=== PATIENT | male | born 1930 | race Caucasian/White ===

== ENCOUNTER 2017-08-21 00:21 | Inpatient (IN) | payer MEDICARE, MEDICAID ==
[~2017-08-21] VITALS: Ht 188 cm; Wt 97.0 kg
[2017-08-21] VITALS (7 sets, daily range): BP systolic 115–147; BP diastolic 61–71; PULSE 72–85; RESP 17–22; TEMP 98.6–98.8; O2SAT 95–98
[~2017-08-21 00:21] MED LIST: ASPI81 PO; CLON1 PO; DOXA1TAB3 PO; ENAL20TA81 PO; GLYB1TAB50 PO; LEVO75TA42 PO; LORT5TAB PO; METF850T PO; METO25 PO; NIAC500 PO; SIMV20 PO; TAB-TAB PO
--- NOTE | 2017-08-21 00:43 | PD ---
HPI Chief Complaint: MCDOWELL ACT Time Seen by Provider: 00:28 Travel History International Travel<30 days: No Contact w/Intl Traveler<30days: No Traveled to known affect area: No History of Present Illness HPI CLINICAL PSYCHOLOGIST INITIATED MCDOWELL ACT AT [facility] AND SENT TO [facility] FOR EVALUATION. PATIENT APPPARENTLY WAS ATTEMPTING TO CUT HIS WRISTS WITH DULL OBJECTS....PATIENT HIMSELF HAS NO COMPLAINT AND STATES THAT HE IS HERE BECAUSE HE SAID "HE WANTED TO BECAUSE HE DOESN'T SEE A LIGHT AT THE END OF THE TUNNEL" PATIENT HAS NO ACTUAL PLAN IN PLACE. 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 Repeat every 5 minutes for a total of 3 DOSES or call 911 if NO relief. Milk of Magnesia Liq (Magnesium Hydroxide) 400 Mg/5 Ml Susp 30 Ml PO DAILY PRN Baclofen 10 Mg Tab 5 Mg PO Q8HR Tylenol (Acetaminophen) 325 Mg Tab 650 Mg PO Q4H PRN Magnesium Oxide 400 Mg Tab 400 Mg PO TID Hydrocodone-Acetaminophen 7.5 Mg-325 Mg Tab 1 Tab PO Q12HR PRN Xarelto (Rivaroxaban) 15 Mg Tab 15 Mg PO HS Tamsulosin (Tamsulosin HCl) 0.4 Mg Cap 0.4 Mg HS Januvia (Sitagliptin Phosphate) 100 Mg Tab 100 Mg PO DAILY Probiotic (Saccharomyces Boulardii) 250 Mg Cap 250 Mg PO BID One Daily-Minerals (Multiple Vitamins W/ Minerals) 1 Tab 1 Tab PO DAILY Metoprolol Tartrate 25 Mg Tab 25 Mg PO DAILY Allergy Relief (Loratadine) 10 Mg Tab 10 Mg PO DAILY Glipizide 5 Mg Tab 5 Mg PO DAILY Take 30 minutes before a meal Folic Acid 0.4 Mg Tab 1 Mg PO DAILY Celexa (Citalopram Hydrobromide) 10 Mg Tab 20 Mg PO DAILY Atorvastatin (Atorvastatin Calcium) 10 Mg Tab 10 Mg PO HS Abilify (Aripiprazole) 2 Mg Tab 2 Mg PO DAILY Review of Systems Psychiatric: Positive: Suicidal Ideations Physical Exam Narrative GENERAL: SKIN: Warm and dry. HEAD: Atraumatic. Normocephalic. EYES: Pupils equal and round. No scleral icterus. No injection or drainage. ENT: No nasal bleeding or discharge. Mucous membranes pink and moist. NECK: Trachea midline. No JVD. CARDIOVASCULAR: Regular rate and rhythm. RESPIRATORY: No accessory muscle use. Clear to auscultation. Breath sounds equal bilaterally. GASTROINTESTINAL: Abdomen soft, non-tender, nondistended. MUSCULOSKELETAL: Extremities without clubbing, cyanosis, or edema. No obvious deformities. NEUROLOGICAL: Awake and alert. Motor grossly within normal limits.Normal speech. PSYCHIATRIC: DEPRESSED mood and SAD affect; insight and judgment normal. Data Data Last Documented VS Orders Orders Complete Blood Count With Diff (08/21/17 00:28) Comprehensive Metabolic Panel (08/21/17 00:28) Thyroid Stimulating Hormone (08/21/17:28) Urinalysis - C+S If Indicated (08/21/17:28) Electrocardiogram (08/21/17 00:28) Oximetry (08/21/17 00:28) Ecg Monitoring (08/21/17:28) Psych Screen (08/21/17:28) Drug Screen, Random Urine (08/21/17:28) Alcohol (Ethanol) (08/21/17:28) Salicylates (Aspirin) (08/21/17 00:28) Tylenol (Acetaminophen) (08/21/17 00:28) Ct Brain W/O Iv Contrast(Rout) (08/21/17 00:43) Chest, Single Ap (08/21/17 00:44) Diet Heart Healthy (08/21/17 Breakfast) Urine Culture (08/21/17 07:30) Admit Order (Ed Use Only) (08/21/17 15:58) Labs Laboratory Tests Test 08/21/17 00:45 08/21/17 07:30 White Blood Count 9.4 TH/MM3 Red Blood Count 3.92 MIL/MM3 Hemoglobin 10.0 GM/DL Hematocrit 30.4 % Mean Corpuscular Volume 77.5 FL Mean Corpuscular Hemoglobin 25.4 PG Mean Corpuscular Hemoglobin Concent 32.8 % Red Cell Distribution Width 16.3 % Platelet Count 296 TH/MM3 Mean Platelet Volume 7.3 FL Neutrophils (%) (Auto) 68.2 % Lymphocytes (%) (Auto) 19.9 % Monocytes (%) (Auto) 6.6 % Eosinophils (%) (Auto) 4.7 % Basophils (%) (Auto) 0.6 % Neutrophils # (Auto) 6.4 TH/MM3 Lymphocytes # (Auto) 1.9 TH/MM3 Monocytes # (Auto) 0.6 TH/MM3 Eosinophils # (Auto) 0.4 TH/MM3 Basophils # (Auto) 0.1 TH/MM3 CBC Comment DIFF FINAL Differential Comment Blood Urea Nitrogen 27 MG/DL Creatinine 1.74 MG/DL Random Glucose 233 MG/DL Total Protein 6.4 GM/DL Albumin 1.9 GM/DL Calcium Level 7.9 MG/DL Alkaline Phosphatase 88 U/L Aspartate Amino Transf (AST/SGOT) 15 U/L Alanine Aminotransferase (ALT/SGPT) 18 U/L Total Bilirubin 0.2 MG/DL Sodium Level 139 MEQ/L Potassium Level 4.4 MEQ/L Chloride Level 106 MEQ/L Carbon Dioxide Level 25.1 MEQ/L Anion Gap 8 MEQ/L Estimat Glomerular Filtration Rate 37 ML/MIN Thyroid Stimulating Hormone 3rd Gen 8.210 uIU/ML Salicylates Level LESS THAN 1.7 MG/DL Acetaminophen Level LESS THAN 2.0 MCG/ML Ethyl Alcohol Level LESS THAN 3 MG/DL Urine Color YELLOW Urine Turbidity CLEAR Urine pH 5.0 Urine Specific [place] 1.019 Urine Protein NEG mg/dL Urine Glucose (UA) NEG mg/dL Urine Ketones NEG mg/dL Urine Occult Blood MOD Urine Nitrite NEG Urine Bilirubin NEG Urine Urobilinogen LESS THAN 2.0 MG/DL Urine Leukocyte Esterase MOD Urine RBC 65 /hpf Urine WBC 23 /hpf Urine Squamous Epithelial Cells <1 /hpf Urine Bacteria OCC /hpf Microscopic Urinalysis Comment CULTURE INDICATED Urine Opiates Screen POS Urine Barbiturates Screen NEG Urine Amphetamines Screen NEG Urine Benzodiazepines Screen NEG Urine Cocaine Screen NEG Urine Cannabinoids Screen NEG MDM Medical Decision Making Medical Screen Exam Complete: Yes Emergency Medical Condition: Yes Medical Record Reviewed: Yes Interpretation(s) NSR, 72 BPM, RBBB, PVC'S NO STEMI PATTERN Differential Diagnosis PNA V ICH V STEMI V INTOXICATION V PSYCH ILLNESS Narrative Course prerenal azotemia, mild anemia hb 10, tsh c/w hypothyroid and ua c/w uti...although medically cleared, all the previous mentioned medical diagnosis may be affecting the patient's "depression" Diagnosis Primary Impression: MEDICAL CLEARANCE Scripts Sertraline (Zoloft) 50 Mg Tab 75 MG PO DAILY for health, #45 TAB 0 Refills Prov: Bob Shay MD 08/26/17 Levothyroxine (Synthroid) 112 Mcg Tab 112 MCG PO DAILY@0600 for health, #30 TAB 0 Refills Prov: Bob Shay MD 08/26/17 Ferrous Sulfate (Ferosul) 325 Mg (65 Mg Iron) Tablet 325 MG PO DAILY for health, #30 TAB 0 Refills Prov: Bob Shay MD 08/26/17 Amlodipine (Norvasc) 5 Mg Tab 2.5 MG PO DAILY for health, #30 TAB 0 Refills Prov: Bob Shay MD 08/26/17 Andrew Chow MD Aug 21, 2017 00:43
[2017-08-21 00:52] LABS: AUTOMATED NEUTROPHIL # 6.4 TH/MM3 (1.8-7.7); BASOPHIL # 0.1 TH/MM3 (0-0.2); BASOPHIL % 0.6 % (0.0-2.0); EOSINOPHIL # 0.4 TH/MM3 (0-0.4); EOSINOPHIL % 4.7 % (0.0-4.0); HEMATOCRIT 30.4 % (39.0-51.0); LYMPH % 19.9 % (9.0-44.0); LYMPHOCYTE # 1.9 TH/MM3 (1.0-4.8); MEAN CELL VOLUME 77.5 FL (80.0-100.0); MEAN CORPUSCULAR HEMOGLOBIN 25.4 PG (27.0-34.0); MEAN CORPUSCULAR HGB CONC 32.8 % (32.0-36.0); MEAN PLATELET VOLUME 7.3 FL (7.0-11.0); MONO % 6.6 % (0.0-8.0); MONOCYTE # 0.6 TH/MM3 (0-0.9); NEUT % 68.2 % (16.0-70.0); PLATELET COUNT 296 TH/MM3 (150-450); RED BLOOD COUNT 3.92 MIL/MM3 (4.50-5.90); RED CELL DISTRIBUTION WIDTH 16.3 % (11.6-17.2); WHITE BLOOD COUNT 9.4 TH/MM3 (4.0-11.0)
--- NOTE | 2017-08-21 01:21 | RADRPT ---
EXAM DATE/TIME: 08/21/2017 00:47 [facility] COMPARISON: CHEST SINGLE AP, March 09, 2010, 4:17. INDICATIONS : History of COPD. MEDICAL HISTORY : Hypertension. Diabetes mellitus type II. Chronic obstructive pulmonary diseas e. Arthritis. Hypercholesterolemia. Melanoma. SURGICAL HISTORY : CABG. Cholecystectomy. Hip. Bilateral knee. ENCOUNTER: Initial ACUITY: 1 day PAIN SCORE: 0/10 LOCATION: Bilateral chest FINDINGS: A single view of the chest demonstrates the lungs to be symmetrically aerated without evidence of mas s or effusion. There is chronic scarring at the left lung base with no new confluent infiltrates or e ffusions. The patient is status post median sternotomy. The cardiomediastinal contours are unremarka ble. Osseous structures are intact. CONCLUSION: Stable appearance with chronic scarring at the left lung base. Jessee Alberts MD on August 21, 2017 at 1:18 Board Certified Radiologist. This report was verified electronically.
[2017-08-21 01:23] LABS: ALBUMIN 1.9 GM/DL (3.4-5.0); ALT (GPT) 18 U/L (12-78); AST (GOT) 15 U/L (15-37); BICARBONATE 25.1 MEQ/L (21.0-32.0); BLOOD UREA NITROGEN 27 MG/DL (7-18); CALCIUM 7.9 MG/DL (8.5-10.1); CHLORIDE 106 MEQ/L (98-107); CREATININE 1.74 MG/DL (0.60-1.30); GLOMERULAR FILTRATION RATE 37 ML/MIN (>89); GLUCOSE,RANDOM 233 MG/DL (74-106); SODIUM (NA) 139 MEQ/L (136-145)
[2017-08-21 01:33] LABS: ACETAMINOPHEN LESS THAN 2.0 MCG/ML (10.0-30.0); ALKALINE PHOSPHATASE 88 U/L (45-117); TOTAL BILIRUBIN ADULT 0.2 MG/DL (0.2-1.0); TOTAL PROTEIN 6.4 GM/DL (6.4-8.2)
--- NOTE | 2017-08-21 01:38 | RADRPT ---
EXAM DATE/TIME: 08/21/2017 01:21 [facility] COMPARISON: No previous studies available for comparison. INDICATIONS : Altered mental status. RADIATION DOSE: 41.30 CTDIvol (mGy) MEDICAL HISTORY : Non-responsive. SURGICAL HISTORY : Non-responsive. ENCOUNTER: Initial ACUITY: 1 day PAIN SCALE: Non-responsive LOCATION: cranial TECHNIQUE: Multiple contiguous axial images were obtained of the head. Using automated exposure control and adj ustment of the mA and/or kV according to patient size, radiation dose was kept as low as reasonably a chievable to obtain optimal diagnostic quality images. DICOM format image data is available electro nically for review and comparison. FINDINGS: CEREBRUM: There is diffuse moderate atrophic change with sulcal and ventricular prominence. No evidence of midl ine shift, hemorrhage or acute infarction. There is a low density region along the medial left tempor al lobe best seen on image #9 which measures up to approximately 2.3 x 1.3 cm in diameter. No extra-a xial fluid collections are seen. POSTERIOR FOSSA: The brainstem is intact. There is a small low-attenuation region in the left cerebellar hemisphere c onsistent with an area of remote infarction. The 4th ventricle is midline. The cerebellopontine angl e is unremarkable. EXTRACRANIAL: The visualized portion of the orbits is intact. SKULL: The calvaria is intact. No evidence of skull fracture. CONCLUSION: 1. Low attenuation region along the medial left temporal lobe which may represent a small arachnoid c yst or area of encephalomalacia. 2. Diffuse moderate atrophic change with sulcal and ventricular prominence. 3. 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 Jessee Alberts MD on August 21, 2017 at 1:33 Board Certified Radiologist. This report was verified electronically.
[2017-08-21 08:16] LABS: BACTERIA, URINE OCC /hpf; BILIRUBIN, URINE NEG (NEG); BLOOD, URINE MOD (NEG); GLUCOSE,URINE NEG (NEG); KETONE, URINE NEG (NEG); NITRITE,URINE NEG (NEG); SQUAMOUS EPITHELIAL CELL URINE <1 /hpf (0-5); URINE COLOR YELLOW (YELLW/STRAW); URINE LEUKOCYTE ESTERASE MOD (NEG)
[2017-08-21] MEDS ORDERED: ONDA8TAB7 PO (14:38)
[2017-08-21] MEDS ORDERED: TYLE325T PO (14:38)
[2017-08-21] MEDS ORDERED: METO25TA3 PO (14:38)
[2017-08-21] MEDS ORDERED: GLIP5TAB8 PO (14:38)
[2017-08-21] MEDS ORDERED: ATOR10TA15 PO (14:38)
[2017-08-21] MEDS ORDERED: CELE10TA PO (14:38)
[2017-08-21] MEDS ORDERED: BACL10TA PO (14:38)
[2017-08-21] MEDS ORDERED: MILKSUS PO (14:38)
[2017-08-21] MEDS ORDERED: ARIP2 PO (14:38)
[2017-08-21] MEDS ORDERED: NITR0.4S SL (14:38)
[2017-08-21] MEDS ORDERED: MIRA3350 PO (14:38)
[2017-08-21] MEDS ORDERED: LEVO100T5 PO (14:38)
[2017-08-21] MEDS ORDERED: TAMS0.4C4 (14:38)
[2017-08-21] MEDS ORDERED: XARE15TA PO (14:38)
[2017-08-21] MEDS ORDERED: FOLI400T PO (14:38)
[2017-08-21] MEDS ORDERED: HYDR-3580 PO (14:38)
[2017-08-21] MEDS ORDERED: OMEP40CA2 (14:38)
[2017-08-21] MEDS ORDERED: SACC1CAP3 PO (14:38)
[2017-08-21] MEDS ORDERED: SITA1TAB2 PO (14:38)
[2017-08-21] MEDS ORDERED: FLOR250C PO (14:38)
[2017-08-21] MEDS ORDERED: MAGN400T2 PO (14:38)
[2017-08-21] MEDS ORDERED: ONETAB22 PO (14:38)
[2017-08-21] MEDS ORDERED: LORA-650 PO (14:38)
[2017-08-21] MEDS ORDERED: CLON1 PO (14:38)
[2017-08-21] MEDS ORDERED: ACETAMINOPHEN 325 MG TAB PO PRN (16:00)
[2017-08-21] MEDS ORDERED: LORazepam 2 MG/ML VIAL IM PRN (16:00)
[2017-08-21] MEDS ORDERED: ALUMINUM/MAGNESIUM/SIMETH 30 ML CUP PO PRN (16:00)
[2017-08-21] MEDS ORDERED: LORazepam 0.5 MG TAB PO PRN (16:00)
[2017-08-21] MEDS ORDERED: SERTRALINE HCL 50 MG TAB PO ONE (16:30)
[2017-08-21] MEDS ORDERED: PILL SPLITTER OTHER PRN (16:30)
--- NOTE | 2017-08-21 16:33 | HHI.HP ---
Provisional Diagnosis Admission Date Aug 21, 2017 at 16:00 [place] I. Major depressive disorder, single episode, severe without psychotic features Certification of Person's Competence To Provide Express and Informed Consent I have personally examined Elia Mckeon , a person being served at [facility] on, Aug 21, 2017 16:19. Express and informed consent means consent voluntarily given in writing, by a competent person, after sufficient explanation and disclosure of the subject matter involved to enable the person to make a knowing and willful decision without any element of force, fraud, deceit, duress, or other form of constraint or coercion. This person is 18 years of age or older, is not now known to be incompetent to consent to treatment with a guardian advocate, and does not have a health care surrogate or proxy currently making medical treatment decisions. I have found this person to be one of the following: [] Competent to provide express and informed consent, as defined above, for voluntary admission to this facility and is competent to provide express and informed consent for treatment. He/she has the consistent capacity to make well reasoned, willful, and knowing decisions concerning his or her medical or mental health treatment. The person fully and consistently understands the purpose of the admission for examination/placement and is fully capable of personally exercising all rights assured under [place]xxx] Incompetent to provide express and informed consent to voluntary admission , and this is incompetent to provide express and informed consent to treatment. The person must be transferred to involuntary status and a petition for a guardian advocate filed with the Circuit Court. [] Refusing to provide express and informed consent to voluntary admission but is competent to provide express and informed consent for treatment. The person must be discharged or transferred to involuntary status. Form shall be completed within 24 hours of a person's arrival at the receiving facility and filed in the clinical record of each person: 1. Admitted on a voluntary basis 2. Permitted to provide express and informed consent to his/her own treatment 3. Allowed to transfer from involuntary to voluntary status 4. Prior to permitting a person to consent to his or her own treatment after having been previously found incompetent to consent to treatment. History of Present Illness Capacity: Has Capacity HPI Patient is an 87-year-old man , domiciled in a nursing facility with no formal past psychiatric history, no prior psychiatric admission , one previous suicide attempt years ago via overdose, no self interest behavior , with a past medical history significant for COPD, diabetes, BPH, nonambulatory , currently requiring total care, no substance use history, was brought in under Kruger act by clinical psychologist at the facility at the patient have attempted to cut wrists with L object and wanted to which patient was admitted to the inpatient psychiatry for further evaluation and management. As per the Kruger act patient was noted to have significant depressive symptoms with ongoing suicide ideation with clear intent as patient reported planning to kill himself by suffocation or slitting his wrists with dull objects. Patient was found lying hospital bed noted B, cooperative although noted to have some psychomotor retardation. Patient states that he did not want to live anymore for the past 2 years but has been worse recently after his told him that he cannot return home until he was able to return to his previous function which is likely unlikely due to his current physical state. Patient states that his recent stressors are that he is not able to be at home, cannot get at when he wants to and able to return to his previous function. Patient states that he has had thoughts of not wanting to be alive and recent thoughts of ways he would end his life such as drowning himself in a lewis. Patient states he has had one remote suicide attempt years ago via overdose. Patient this time reports decreased energy feeling depressed, helpless and hopeless but no changes sleep, appetite or concentration. Patient continues to have active suicidal ideations denies any perceptual disturbances or delusions at this time. Past psychiatric history: Patient denies although as per chart previous psychiatric diagnoses of depression, no previous psychiatric admissions, one previous suicide attempt years ago, no self interest behavior patient reports having been on medications for depression in the past but cannot recall at this time. Past medical history: COPD, diabetes, BPH Allergies: Ibuprofen Substance use history denies Social history: , domiciled nursing facility. Review of Systems Except as stated in HPI: all other systems reviewed are Neg Past Family Social History Coded Allergies: ibuprofen (Unverified Allergy, Severe, HX GASTRIC ULCERS, 01/13/17) Reported Medications Ondansetron (Ondansetron) 8 Mg Tab, 4 MG PO TID for Nausea/Vomiting, TAB 0 Refills 08/21/17 Nitroglycerin SL (Nitrostat SL) 0.4 Mg Subl, 0.4 MG SL DIRECTED Y for CHEST PAIN, #100 TAB.SL 0 Refills 1 tablet under the tongue as needed for chest pain. Repeat every 5 minutes for a total of 3 DOSES or call 911 if NO relief. 08/21/17 Polyethylene Glycol 3350 Powder (Miralax Powder) 17 Gm Powd, 17 GM PO DAILY for Constipation, #1 CAN 0 Refills Mix and dissolve one measuring cap-ful (17 grams) in water or juice. 08/21/17 Magnesium Hydroxide Liq (Milk of Magnesia Liq) 400 Mg/5 Ml Susp, 30 ML PO DAILY Y for INDIGESTION OR UPSET STOMACH, #1 BOTTLE 0 Refills 08/21/17 Baclofen (Baclofen) 10 Mg Tab, 5 MG PO Q8HR, TAB 0 Refills 08/21/17 Acetaminophen (Tylenol) 325 Mg Tab, 650 MG PO Q4H Y for pain-fever, TAB 0 Refills 08/21/17 Magnesium Oxide (Magnesium Oxide) 400 Mg Tab, 400 MG PO TID for Nutritional Supplement, TAB 0 Refills 08/21/17 Saccharomyces Boulardii (Florastor) 250 Mg Cap, 250 MG PO BID for Nutritional Supplement for 10 Days, #20 CAP 0 Refills 08/21/17 Hydrocodone-Acetaminophen (Hydrocodone-Acetaminophen) 7.5 Mg-325 Mg Tab, 1 TAB PO Q12HR Y for PAIN, TAB 0 Refills 08/21/17 Rivaroxaban (Xarelto) 15 Mg Tab, 15 MG PO HS for Blood Clot Prevention, TAB 0 Refills 08/21/17 Tamsulosin (Tamsulosin) 0.4 Mg Cap, 0.4 MG HS for Manage Prostate Problems, #30 CAP 0 Refills 08/21/17 Sitagliptin (Januvia) 100 Mg Tab, 100 MG PO DAILY for Blood Sugar Management, # 30 TAB 0 Refills 08/21/17 Saccharomyces Boulardii (Probiotic) 250 Mg Cap, 250 MG PO BID for Nutritional Supplement, CAP 0 Refills 08/21/17 Omeprazole (Omeprazole) 40 Mg Cap, 40 MG DAILY, #30 CAP 0 Refills 08/21/17 Multiple Vitamins W/ Minerals (One Daily-Minerals) 1 Tab, 1 TAB PO DAILY for Nutritional Supplement, #100 TAB 0 Refills 08/21/17 Metoprolol Tartrate (Metoprolol Tartrate) 25 Mg Tab, 25 MG PO DAILY, #30 TAB 0 Refills 08/21/17 Loratadine (Allergy Relief) 10 Mg Tab, 10 MG PO DAILY, TAB 08/21/17 Levothyroxine (Levothyroxine) 100 Mcg Tab, 100 MCG PO DAILY for Thyroid, #30 TAB 0 Refills 08/21/17 Clonazepam (Klonopin) 1 Mg Tab, 1 MG PO HS, #60 TAB 0 Refills 08/21/17 Glipizide (Glipizide) 5 Mg Tab, 5 MG PO DAILY for Blood Sugar Management, #30 TAB 0 Refills Take 30 minutes before a meal 08/21/17 Folic Acid (Folic Acid) 0.4 Mg Tab, 1 MG PO DAILY for Nutritional Supplement, TAB 0 Refills 08/21/17 Citalopram (Celexa) 10 Mg Tab, 20 MG PO DAILY for Control Depression, #30 TAB 0 Refills 08/21/17 Atorvastatin (Atorvastatin) 10 Mg Tab, 10 MG PO HS for Cholesterol Management, # 30 TAB 0 Refills 08/21/17 Aripiprazole (Abilify) 2 Mg Tab, 2 MG PO DAILY, #30 TAB 0 Refills 08/21/17 Current Medications Medications (Trade) Dose Ordered Sig/Maurilio Route Start Time Stop Time Status Last Admin (Ativan) 0.5 mg Q12H PRN PO 08/21/17 16:00 (Ativan Inj) 0.5 mg Q12H PRN IM 08/21/17 16:00 (Benadryl) 50 mg HS PRN PO 08/21/17 16:00 (Tylenol) 650 mg Q4H PRN PO 08/21/17 16:00 UNV (Milk Of Magnesia Liq) 30 ml DAILY PRN PO 08/21/17 16:00 UNV (Mag-Al Plus Susp Liq) 30 ml Q6H PRN PO 08/21/17 16:00 UNV (Habitrol 21 Mg Patch.24 Hr) 1 patch DAILY T-DERMAL 08/22/17 09:00 UNV Patient's Strengths (min. 2) Verbal and communicative Physical Exam We will defer to recent ED physical exam performed prior to transfer to inpatient unit not noted to be in acute distress during interview, no signs of tremor or EPS but was noted to have some psychomotor retardation. Vital Signs Vital Signs Date Time Temp Pulse Resp B/P (MAP) Pulse Ox O2 Delivery O2 Flow Rate FiO2 08/21/17 15:24 79 19 147/69 (95) 96 Room Air 08/21/17 07:30 98.6 Lab Results Labs reviewed Test 08/21/17 00:45 08/21/17 07:30 White Blood Count 9.4 TH/MM3 Red Blood Count 3.92 MIL/MM3 Hemoglobin 10.0 GM/DL Hematocrit 30.4 % Mean Corpuscular Volume 77.5 FL Mean Corpuscular Hemoglobin 25.4 PG Mean Corpuscular Hemoglobin Concent 32.8 % Red Cell Distribution Width 16.3 % Platelet Count 296 TH/MM3 Mean Platelet Volume 7.3 FL Neutrophils (%) (Auto) 68.2 % Lymphocytes (%) (Auto) 19.9 % Monocytes (%) (Auto) 6.6 % Eosinophils (%) (Auto) 4.7 % Basophils (%) (Auto) 0.6 % Neutrophils # (Auto) 6.4 TH/MM3 Lymphocytes # (Auto) 1.9 TH/MM3 Monocytes # (Auto) 0.6 TH/MM3 Eosinophils # (Auto) 0.4 TH/MM3 Basophils # (Auto) 0.1 TH/MM3 CBC Comment DIFF FINAL Differential Comment Blood Urea Nitrogen 27 MG/DL Creatinine 1.74 MG/DL Random Glucose 233 MG/DL Total Protein 6.4 GM/DL Albumin 1.9 GM/DL Calcium Level 7.9 MG/DL Alkaline Phosphatase 88 U/L Aspartate Amino Transf (AST/SGOT) 15 U/L Alanine Aminotransferase (ALT/SGPT) 18 U/L Total Bilirubin 0.2 MG/DL Sodium Level 139 MEQ/L Potassium Level 4.4 MEQ/L Chloride Level 106 MEQ/L Carbon Dioxide Level 25.1 MEQ/L Anion Gap 8 MEQ/L Estimat Glomerular Filtration Rate 37 ML/MIN Thyroid Stimulating Hormone 3rd Gen 8.210 uIU/ML Salicylates Level LESS THAN 1.7 MG/DL Acetaminophen Level LESS THAN 2.0 MCG/ML Ethyl Alcohol Level LESS THAN 3 MG/DL Urine Color YELLOW Urine Turbidity CLEAR Urine pH 5.0 Urine Specific [place] 1.019 Urine Protein NEG mg/dL Urine Glucose (UA) NEG mg/dL Urine Ketones NEG mg/dL Urine Occult Blood MOD Urine Nitrite NEG Urine Bilirubin NEG Urine Urobilinogen LESS THAN 2.0 MG/DL Urine Leukocyte Esterase MOD Urine RBC 65 /hpf Urine WBC 23 /hpf Urine Squamous Epithelial Cells <1 /hpf Urine Bacteria OCC /hpf Microscopic Urinalysis Comment CULTURE INDICATED Urine Opiates Screen POS Urine Barbiturates Screen NEG Urine Amphetamines Screen NEG Urine Benzodiazepines Screen NEG Urine Cocaine Screen NEG Urine Cannabinoids Screen NEG Date/Time Source Procedure Growth Status 08/21/17 07:30 Urine Random Urine Urine Culture Pending Received Mental Status Examination Appearance: Appropriate Consciousness: Alert Orientation: Person, Place Motor Activity: Other (Nonambulatory) Speech: Slow Language: Adequate Fund of Knowledge: Inadequate Attention and Concentration: Adequate Memory: Unremarkable Mood: Sad Affect: Sad Thought Process & Associations: Linear Thought Content: Preoccupations (Underlying) Hallucination Type: None Delusion Type: None Suicidal Ideation: Yes Suicidal Plan: Yes Suicidal Intention: Yes Homicidal Ideation: No Homicidal Plan: No Homicidal Intention: No Insight: Poor Judgment: Poor Assessment & Plan Problem List: (1) Major depressive disorder, single episode, severe without psychotic features ICD Codes: F32.2 - Major depressive disorder, single episode, severe without psychotic features Assessment & Plan Estimated LOS: 5-7 days. Patient at this time endorses significant depressive symptoms along with active suicide ideations with intent to . Patient will be admitted to the inpatient psychiatry unit under involuntary petition, second opinion requested. We will start patient on sertraline 25 mg 1 and 50 mg p.o. daily for depression, continue rest of medications for medical issues, we will consult hospitalist to assist in management of chronic medical issues. Collateral information pending from . Social work intervention for psychosocial assessment. Monitor mood and behavior. Patient will require full assist as this patient is total care. We will request wound consult as patient has decubitus ulcer. Discharge planning in progress. Discharge Planning Patient return back to nursing facility when psychiatrically stable. Mati Larios MD Aug 21, 2017 16:33
--- NOTE | 2017-08-21 19:51 | EKG ---
Date Performed: 08/21/2017 Time Performed: 00:44:18 PTAGE: 87 years EKG: Sinus rhythm WITH FREQUENT SUPRAVENTRICULAR PREMATURE COMPLEXES RIGHT BUNDLE BRANCH BLOCK PROLONGED CORRECTED QT INTERVAL ABNORMAL ECG PREVIOUS TRACING : 03/07/2010 07.41 DOCTOR: Wilson Jensen Interpretating Date/Time 08/21/2017 19:49:11
[2017-08-21] MEDS: MAGNESIUM HYDROXIDE SUSP 30 ML CUP PO PRN (21:39)
[2017-08-22] MEDS: diphenhydrAMINE HCL 50 MG CAP PO PRN ×2 (01:12→21:35)
[2017-08-22 05:41] VITALS: BP 143/72; PULSE 81; RESP 16; TEMP 98.4; O2SAT 100
[2017-08-22] MEDS ORDERED: DEXTROSE 50% IN WATER 50 ML VIAL(D50) IV PUSH PRN (08:30)
[2017-08-22] MEDS ORDERED: GLUCAGON 1 MG/ML VIAL OTHER PRN (08:30)
[2017-08-22] MEDS ORDERED: NON-FORMULARY DRUG (Saccharomyces Boulardii (Probiotic) 250 MG) PO SCH (09:00)
[2017-08-22] MEDS: NICOTINE 21 MG/24 HR PATCH T-DERMAL SCH (09:00)
[2017-08-22] MEDS: METOPROLOL TARTRATE 25 MG TAB PO SCH (09:00)
[2017-08-22] MEDS: glipiZIDE 5 MG TAB PO SCH (09:00)
[2017-08-22] MEDS: SERTRALINE HCL 50 MG TAB PO SCH (09:00)
[2017-08-22] MEDS: MULTIVITAMINS/MINERALS THERAPEUTIC TAB PO SCH (09:00)
[2017-08-22] MEDS: PANTOPRAZOLE SOD 40 MG DELAYED RELEASE TAB PO SCH (09:00)
[2017-08-22] MEDS ORDERED: RESP: ALBUTEROL 2.5 MG/IPRATROPIUM 0.5 MG NEB (PRN) NEB (09:00)
[2017-08-22] MEDS: FOLIC ACID 1 MG TAB PO SCH (09:00)
[2017-08-22] MEDS ORDERED: LEVOTHYROXINE SODIUM 100 MCG TAB PO SCH (09:00)
[2017-08-22] MEDS ORDERED: CEFUROXIME AXETIL 250 MG TAB PO ONE (10:00)
[2017-08-22] MEDS: INSULIN ASPART SUPPLEMENTAL SCALE SQ SCH ×3 (11:14→21:00)
--- NOTE | 2017-08-22 11:52 | HHI.PYPN ---
Subjective Remarks Pt seen and discussed with staff. Pt remains depressed. He has been cooperative with care and compliant with medications. No medication side effects.He was started on zoloft for depression and is tolerating it well. Mental Status Examination Appearance: Appropriate Consciousness: Alert Orientation: Person, Place Motor Activity: Other (Nonambulatory) Speech: Slow Language: Adequate Fund of Knowledge: Inadequate Attention and Concentration: Adequate Memory: Unremarkable Mood: Sad Affect: Sad, Flat Thought Process & Associations: Linear Thought Content: Preoccupations (Underlying) Hallucination Type: None Delusion Type: None Suicidal Ideation: Yes Suicidal Plan: No Suicidal Intention: No Homicidal Ideation: No Homicidal Plan: No Homicidal Intention: No Insight: Poor Judgment: Poor Results Labs Date/Time Source Procedure Growth Status 08/21/17 07:30 Urine Random Urine Urine Culture - Final 10-50,000 CFU/ML MIXED AZALIA... Complete Vitals/IOs Vital Signs Date Time Temp Pulse Resp B/P (MAP) Pulse Ox O2 Delivery O2 Flow Rate FiO2 08/22/17 05:41 98.4 81 16 143/72 (95) 100 08/21/17 15:24 Room Air Intake and Output 08/22/17 08/22/17 08/23/17 08:00 16:00 00:00 Intake Total 0 ml Balance 0 ml Assessment & Plan Problem List: (1) Major depressive disorder, single episode, severe without psychotic features ICD Codes: F32.2 - Major depressive disorder, single episode, severe without psychotic features Assessment & Plan Continue current tx plan. Estimated LOS: days Justification for Cont. Inpt. monitoring for safety Agnes Gil MD Aug 22, 2017 11:52
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
[2017-08-22 13:29] LABS: AUTOMATED NEUTROPHIL # 8.9 TH/MM3 (1.8-7.7); BASOPHIL # 0.1 TH/MM3 (0-0.2); EOSINOPHIL # 0.3 TH/MM3 (0-0.4); EOSINOPHIL % 2.3 % (0.0-4.0); HEMOGLOBIN 10.6 GM/DL (13.0-17.0); LYMPH % 14.5 % (9.0-44.0); LYMPHOCYTE # 1.7 TH/MM3 (1.0-4.8); MEAN CELL VOLUME 77.6 FL (80.0-100.0); MEAN CORPUSCULAR HEMOGLOBIN 25.6 PG (27.0-34.0); MEAN PLATELET VOLUME 7.6 FL (7.0-11.0); MONO % 6.1 % (0.0-8.0); MONOCYTE # 0.7 TH/MM3 (0-0.9); NEUT % 76.1 % (16.0-70.0); PLATELET COUNT 314 TH/MM3 (150-450); RED BLOOD COUNT 4.13 MIL/MM3 (4.50-5.90); WHITE BLOOD COUNT 11.8 TH/MM3 (4.0-11.0)
[2017-08-22 13:46] LABS: BICARBONATE 25.4 MEQ/L (21.0-32.0); BLOOD UREA NITROGEN 25 MG/DL (7-18); CALCIUM 8.3 MG/DL (8.5-10.1); CHLORIDE 105 MEQ/L (98-107); CREATININE 1.67 MG/DL (0.60-1.30); GLOMERULAR FILTRATION RATE 39 ML/MIN (>89); GLUCOSE,RANDOM 136 MG/DL (74-106); SODIUM (NA) 139 MEQ/L (136-145)
[2017-08-22 13:55] LABS: CHOLESTEROL 61 MG/DL (120-200); CHOLESTEROL/ HDL RATIO 2.21 RATIO; HDL CHOLESTEROL 27.5 MG/DL (40.0-60.0); LDL CHOLESTEROL 11 MG/DL (0-99); TRIGLYCERIDES 115 MG/DL (42-150)
[2017-08-22 14:03] LABS: % SATURATION IRON PROFILE 10.6 % (20-50); IRON (FE) 21 MCG/DL (65-175); TOTAL IRON BINDING CAPACITY 199 MCG/DL (250-450)
[2017-08-22 14:28] LABS: FERRITIN 330 NG/ML (26-388)
[2017-08-22 14:29] LABS: FOLATE GREATER THAN 20.0 NG/ML (3.1-17.5)
[2017-08-22 17:32] VITALS: BP 113/74; PULSE 83; RESP 16; TEMP 98.5; O2SAT 100
--- NOTE | 2017-08-22 19:58 | EKG ---
Date Performed: 08/22/2017 Time Performed: 11:22:48 PTAGE: 87 years EKG: Sinus rhythm WITH OCCASIONAL SUPRAVENTRICULAR PREMATURE COMPLEXES RIGHT BUNDLE BRANCH BLOCK INFERIOR MYOCARDIAL I NFARCTION , PROBABLY OLD ABNORMAL ECG Since the PREVIOUS TRACING , no significant change noted PREVIOUS TRACIN08/21/2017 00.44 DOCTOR: Jatin Gates Interpretating Date/Time 08/22/2017 19:56:39
[2017-08-22] MEDS: TAMSULOSIN HCL 0.4 MG CAP PO SCH (21:31)
[2017-08-22] MEDS: CEFUROXIME AXETIL 250 MG TAB PO SCH (21:32)
[2017-08-22] MEDS: ATORVASTATIN 10 MG TAB PO SCH (21:32)
[2017-08-22] MEDS: RIVAROXABAN 15 MG TAB PO SCH (21:32)
[2017-08-23 06:04] VITALS: BP 111/80; PULSE 81; RESP 17; TEMP 98.5; O2SAT 96
[2017-08-23] MEDS: INSULIN ASPART SUPPLEMENTAL SCALE SQ SCH ×4 (08:00→21:01)
[2017-08-23] MEDS: LEVOTHYROXINE SODIUM 112 MCG TAB PO SCH (08:14)
[2017-08-23] MEDS: CEFUROXIME AXETIL 250 MG TAB PO SCH ×2 (08:14→20:59)
[2017-08-23] MEDS: PANTOPRAZOLE SOD 40 MG DELAYED RELEASE TAB PO SCH (08:14)
[2017-08-23] MEDS: SERTRALINE HCL 50 MG TAB PO SCH (08:14)
[2017-08-23] MEDS: glipiZIDE 5 MG TAB PO SCH (08:14)
[2017-08-23] MEDS: FOLIC ACID 1 MG TAB PO SCH (08:14)
[2017-08-23] MEDS: MULTIVITAMINS/MINERALS THERAPEUTIC TAB PO SCH (08:14)
[2017-08-23] MEDS: METOPROLOL TARTRATE 25 MG TAB PO SCH (08:14)
[2017-08-23] MEDS: NICOTINE 21 MG/24 HR PATCH T-DERMAL SCH (08:15)
[2017-08-23 11:45] LABS: HEMOGLOBIN A1C 6.8 % (4.3-6.0)
--- NOTE | 2017-08-23 12:17 | HHI.PR ---
Subjective Remarks Patient seen and examined this morning. Afebrile vital signs stable. He is eating lunch. Reports that he is overall doing well. Does report some mild nausea. Also is reporting some constipation though he has had some improvement in his bowel movements. Denies any chest pain or shortness of breath. Patient was discussed with the nurse. Objective Vitals Vital Signs Date Time Temp Pulse Resp B/P (MAP) Pulse Ox O2 Delivery O2 Flow Rate FiO2 08/23/17 06:04 98.5 81 17 111/80 (90) 96 08/22/17 17:32 98.5 83 16 113/74 (87) 100 I/O 08/22/17 08/22/17 08/22/17 08/23/17 08/23/17 08/23/17 07:00 15:00 23:00 07:00 15:00 23:00 Intake Total 0 ml 120 ml 120 ml 360 ml Balance 0 ml 120 ml 120 ml 360 ml Intake Oral 0 ml 120 ml 120 ml 360 ml # Voids 2 1 3 # Bowel Movements 1 2 Result Diagram: 08/22/17 1220 08/22/17 1220 Imaging Last Impressions Chest X-Ray 08/21/1743 Signed Impressions: Service Date/Time: Monday, August 21, 2017 00:47 - CONCLUSION: Stable appearance with chronic scarring at the left lung base. Jessee Alberts MD Head CT 08/21/17 0043 Signed Impressions: Service Date/Time: Monday, August 21, 2017 01:21 - CONCLUSION: 1. Low attenuation region along the medial left temporal lobe which may represent a small arachnoid cyst or area of encephalomalacia. 2. Diffuse moderate atrophic change with sulcal and ventricular prominence. 3. 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 Jessee Alberts MD Objective Remarks GENERAL: This is a well-nourished, well-developed elderly male patient , in no apparent distress. Awake and alert. Sitting in a chair at the lunch table. Hard of hearing SKIN: No rashes, ecchymoses or lesions. Cool and dry. HEAD: Atraumatic. Normocephalic. No temporal or scalp tenderness. EYES: Extraocular motions intact. No scleral icterus. No injection or drainage. ENT: Nose without bleeding or purulent drainage. Throat without erythema, tonsillar hypertrophy or exudate. Uvula midline. Airway patent. NECK: Trachea midline. No lymphadenopathy. Supple, nontender, no meningeal signs. CARDIOVASCULAR: Regular rate and rhythm with extra beats without murmurs, gallops, or rubs. RESPIRATORY: Fair air entry. Clear to auscultation. Breath sounds equal bilaterally. No wheezes, rales, or rhonchi. GASTROINTESTINAL: Abdomen soft, non-tender, nondistended. No hepato-splenomegaly , or palpable masses. No guarding. MUSCULOSKELETAL: Extremities without clubbing, cyanosis, or edema. No joint tenderness, effusion, or edema noted. No calf tenderness. NEUROLOGICAL: Awake and alert. Cranial nerves II through XII grossly intact. Sensory grossly within normal limits. Diminished motor function RLE, unable to lift up off of bed. Good cellulose insulation helper strength bilaterally. Normal speech. Medications and IVs Current Medications Medications (Trade) Dose Ordered Sig/Maurilio Route Start Time Stop Time Status Last Admin (Ativan) 0.5 mg Q12H PRN PO 08/21/17 16:00 08/22/17 01:12 (Ativan Inj) 0.5 mg Q12H PRN IM 08/21/17 16:00 (Benadryl) 50 mg HS PRN PO 08/21/17 16:00 08/22/17 21:35 (Tylenol) 650 mg Q4H PRN PO 08/21/17 16:00 08/22/17 21:36 (Milk Of Magnesia Liq) 30 ml DAILY PRN PO 08/21/17 16:00 08/21/17 21:39 (Mag-Al Plus Susp Liq) 30 ml Q6H PRN PO 08/21/17 16:00 (Habitrol 21 Mg Patch.24 Hr) 1 patch DAILY T-DERMAL 08/22/17 09:00 (Zoloft) 50 mg DAILY PO 08/22/17 09:00 08/23/17 08:14 (Pill Splitter) 1 ea UNSCH PRN OTHER 08/21/17 16:30 (Lipitor) 10 mg HS PO 08/22/17 21:00 08/22/17 21:32 (Folate) 1 mg DAILY PO 08/22/17 09:00 08/23/17 08:14 (Glucotrol) 5 mg DAILY PO 08/22/17 09:00 08/23/17 08:14 (Lopressor) 25 mg DAILY PO 08/22/17 09:00 08/23/17 08:14 (Theragran M Tab) 1 tab DAILY PO 08/22/17 09:00 08/23/17 08:14 (Xarelto) 15 mg HS PO 08/22/17 21:00 08/22/17 21:32 (Flomax) 0.4 mg HS PO 08/22/17 21:00 08/22/17 21:31 (Protonix) 40 mg DAILY PO 08/22/17 09:00 08/23/17 08:14 (D50w (Vial) Inj) 50 ml UNSCH PRN IV PUSH 08/22/17 08:30 (Glucagon Inj) 1 mg UNSCH PRN OTHER 08/22/17 08:30 (NovoLOG SUPPLEMENTAL SCALE) 1 ACHS SLIDING SCALE SQ 08/22/17 12:00 08/23/17 11:04 (Duoneb Neb) 1 ampule Q4HR NEB PRN NEB 08/22/17 09:00 (Ceftin) 250 mg Q12HR PO 08/22/17 21:00 08/23/17 08:14 (Januvia) 50 mg DAILY PO 08/23/17 09:00 08/23/17 08:14 (Synthroid) 112 mcg DAILY@0600 PO 08/23/17 06:00 08/23/17 08:14 A/P Problem List: (1) Major depressive disorder, single episode, severe without psychotic features ICD Code: F32.2 - Major depressive disorder, single episode, severe without psychotic features (2) Hypertension ICD Code: I10 - Essential (primary) hypertension (3) UTI (urinary tract infection) ICD Code: N39.0 - Urinary tract infection, site not specified (4) Diabetes mellitus ICD Code: E11.9 - Type 2 diabetes mellitus without complications (5) CKD (chronic kidney disease) ICD Code: N18.9 - Chronic kidney disease, unspecified Assessment and Plan 87-year-old male with a past medical history significant for major depressive disorder, hypertension, diabetes, hypothyroidism, coronary artery disease status post CABG, history of PE and DVT, COPD, anemia, GERD and BPH who presented to [facility] ED as a Kruger act initiated by clinical psychologist at [facility] due to patient tending to cut his wrist with dull objects. Patient has since been admitted to the inpatient psychiatric unit and hospitalist services of been consulted for medical management. Major depressive disorder -Management per psychiatric team Advanced age Physical deconditioning -PT eval/treat Hypertension, controlled -Continue on Lopressor 25 mg daily -Continue to monitor BP and adjust treatment accordingly CAD s/p CABG Hx of PE/DVT -Patient has no cardiac complaints at this time -resume on Xarelto -monitor UTI -Symptomatic -UA with moderate leukocytes, 65 red blood cells, 23 white blood cells, occasional bacteria, culture indicated -Likely contaminant per culture however will complete 3 days of IV antibiotics, due to complaints of symptomatic -Continue Ceftin 250 mg twice a day -Follow up on final urine culture results DM -obtain HgbA1c: Results pending -Continue home dose of glipizide 5 mg daily, continue Januvia but at decreased dose of 50 mg daily secondary to kidney dysfunction -Accu-Chek and insulin sliding scale -Continue to monitor blood sugars Chronic kidney disease, stage 3 -creatinine 1.67 -Avoid nephrotoxic agents -Renally dose medications -Continue to monitor renal indices as indicated Anemia, microcytic, hypochromic -Obtain iron studies, B12, folate and stool Hemoccult -Hemoglobin appears stable -Continue to monitor COPD, not in acute exacerbation -CXR shows stable appearance, chronic scarring left lung base -DuoNeb's as needed -Continue to monitor respiratory status Hypothyroidism -TSH 8.210 -Increase home dose of levothyroxine to 112 g daily -patient will need to have TSH level redrawn as outpatient in 6-8 weeks GERD -Resume on PPI BPH -Resume home dose of Flomax Diarrhea Hx of constipation -Patient reporting normal bowel movements though still feeling mildly constipated, currently no worsening signs of possible C. difficile -Discussed with nursing staff, if diarrhea recurs will test for C. difficile DVT prophylaxis -patient is on Xarelto Discharge Planning Pending psychiatric workup Jayjay Iglesias MD, R3 Aug 23, 2017 12:17
--- NOTE | 2017-08-23 13:37 | HHI.PYPN ---
Subjective Remarks Pt seen and discussed with staff. He is having a better day and mood is less dysphoric though he is still tearful at times. He has been out of bed more today and interacted with staff and peers. No medications side effects. He denies SI/HI Mental Status Examination Appearance: Appropriate Consciousness: Alert Orientation: Person, Place Motor Activity: Other (Nonambulatory) Speech: Slow Language: Adequate Fund of Knowledge: Inadequate Attention and Concentration: Adequate Memory: Unremarkable Mood: Sad Affect: Sad, Other (tearful) Thought Process & Associations: Linear Thought Content: Preoccupations (Underlying) Hallucination Type: None Delusion Type: None Suicidal Ideation: No Suicidal Plan: No Suicidal Intention: No Homicidal Ideation: No Homicidal Plan: No Homicidal Intention: No Insight: Poor Judgment: Poor Results Labs Date/Time Source Procedure Growth Status 08/21/17 07:30 Urine Random Urine Urine Culture - Final 10-50,000 CFU/ML MIXED AZALIA... Complete Vitals/IOs Vital Signs Date Time Temp Pulse Resp B/P (MAP) Pulse Ox O2 Delivery O2 Flow Rate FiO2 08/23/17 06:04 98.5 81 17 111/80 (90) 96 08/21/17 15:24 Room Air Intake and Output 08/23/17 08/23/17 08/24/17 08:00 16:00 00:00 Intake Total 120 ml 360 ml Balance 120 ml 360 ml Assessment & Plan Problem List: (1) Major depressive disorder, single episode, severe without psychotic features ICD Codes: F32.2 - Major depressive disorder, single episode, severe without psychotic features Assessment & Plan Continue current tx plan. Estimated LOS: days Justification for Cont. Inpt. risk of decompensation Agnes Gil MD Aug 23, 2017 13:37
[2017-08-23 17:38] VITALS: BP 113/66; PULSE 84; RESP 18; TEMP 98.4; O2SAT 94
[2017-08-23] MEDS: MAGNESIUM HYDROXIDE SUSP 30 ML CUP PO PRN (18:37)
[2017-08-23] MEDS: ATORVASTATIN 10 MG TAB PO SCH (20:59)
[2017-08-23] MEDS: TAMSULOSIN HCL 0.4 MG CAP PO SCH (20:59)
[2017-08-23] MEDS: RIVAROXABAN 15 MG TAB PO SCH (20:59)
[2017-08-24] MEDS ORDERED: TRIMETHOBENZAMIDE INJ 200 MG/2 ML VIAL IM PRN (03:45)
--- NOTE | 2017-08-24 04:33 | RADRPT ---
EXAM DATE/TIME: 08/24/2017 04:00 [place] COMPARISON: No previous studies available for comparison. INDICATIONS : Vomiting. MEDICAL HISTORY : None. SURGICAL HISTORY : Bilateral hip arthroplasty. ENCOUNTER: Subsequent ACUITY: 3 days PAIN SCORE: Non-responsive. LOCATION: Bilateral Abdomen FINDINGS: Supine view of the abdomen was performed. Multiple dilated bowel loops including small bowel loops an d large bowel loops. No abnormal masses, calcifications, or organomegaly is seen. The osseous struc tures are unremarkable. Bilateral hip prostheses. CONCLUSION: Multiple dilated small and large bowel loops. Distal obstruction should be excluded. Mati Jeronimo MD on August 24, 2017 at 4:29 Board Certified Radiologist. This report was verified electronically.
[2017-08-24 04:56] VITALS: BP 95/55; PULSE 85; RESP 16; TEMP 98.2
--- NOTE | 2017-08-24 06:03 | RADRPT ---
EXAM DATE/TIME: 08/24/2017 05:41 [place] COMPARISON: No previous studies available for comparison. INDICATIONS : Abdomen pain with vomiting. ORAL CONTRAST: No oral contrast ingested. RADIATION DOSE: 14.23 CTDIvol (mGy) MEDICAL HISTORY : Cardiovascular disease. Hypertension. Diabetes mellitus type 2.Melanoma SURGICAL HISTORY : CABG Cholecystectomy.Bilateral hips ENCOUNTER: Initial ACUITY: 1 day PAIN SCALE: 7/10 LOCATION: abdomen TECHNIQUE: Volumetric scanning of the abdomen and pelvis was performed. Using automated exposure control and ad justment of the mA and/or kV according to patient size, radiation dose was kept as low as reasonably achievable to obtain optimal diagnostic quality images. DICOM format image data is available electro nically for review and comparison. FINDINGS: LOWER LUNGS: Left basilar consolidation. LIVER: Homogeneous density without lesion. There is no dilation of the biliary tree. Cholecystectomy. SPLEEN: Normal size without lesion. PANCREAS: Within normal limits. KIDNEYS: Normal in size and shape. There is no mass or hydronephrosis. 8-9 mm calcification in the right monica l pelvis. A few other punctate nonobstructing calculi in the right kidney. Several left-sided renal c alculi the largest measuring 8 mm in the upper pole ADRENAL GLANDS: Within normal limits. VASCULAR: There is no aortic aneurysm. BOWEL/MESENTERY: There are some mildly prominent small bowel loops without definite obstruction. Diverticulosis of the colon. There is no free intraperitoneal air or fluid. Small hiatal hernia. ABDOMINAL WALL: Within normal limits. RETROPERITONEUM: There is no lymphadenopathy. BLADDER: No wall thickening or mass. REPRODUCTIVE: Within normal limits. INGUINAL: There is no lymphadenopathy or hernia. MUSCULOSKELETAL: Within normal limits for patient age. CONCLUSION: 1. Left basilar consolidation. 2. Mildly prominent small bowel loops without definite obstruction. 3. Diverticulosis without diverticulitis. 4. Nonobstructing bilateral renal calculi. 5. Status post cholecystectomy. 6. Small hiatal hernia. Mati Jeronimo MD on August 24, 2017 at 5:56 Board Certified Radiologist. This report was verified electronically.
[2017-08-24] MEDS: LEVOTHYROXINE SODIUM 112 MCG TAB PO SCH (06:44)
[2017-08-24 06:50] VITALS: BP 131/63; PULSE 81; RESP 17; TEMP 98.3; O2SAT 95
[2017-08-24] MEDS: INSULIN ASPART SUPPLEMENTAL SCALE SQ SCH ×4 (08:00→21:53)
[2017-08-24] MEDS: NICOTINE 21 MG/24 HR PATCH T-DERMAL SCH (09:00)
[2017-08-24] MEDS: SERTRALINE HCL 50 MG TAB PO SCH (09:01)
[2017-08-24] MEDS: FOLIC ACID 1 MG TAB PO SCH (09:01)
[2017-08-24] MEDS: METOPROLOL TARTRATE 25 MG TAB PO SCH (09:01)
[2017-08-24] MEDS: PANTOPRAZOLE SOD 40 MG DELAYED RELEASE TAB PO SCH (09:01)
[2017-08-24] MEDS: MULTIVITAMINS/MINERALS THERAPEUTIC TAB PO SCH (09:01)
[2017-08-24] MEDS: CEFUROXIME AXETIL 250 MG TAB PO SCH (09:01)
[2017-08-24] MEDS: glipiZIDE 5 MG TAB PO SCH (09:01)
--- NOTE | 2017-08-24 09:12 | PD.TTN ---
Patient Problems 1. Discharge planning 2. Medication compliance 3. Knowledge deficit 4. Lack of coping skills Progress Toward Goals Provider Present: Dr. Alexander Shay Provider Input: Meeting with staff to go over pt treatment. Pt is new Psychiatric Counselors Present: Jeanette Acosta LCSW Psych Therapist Input: Will meet with new pt and begin treatment planningg Group Spec/RT/OT/WHITE Present: CHRISTOPHER Patrick, Michael Saldaña, GEE Group Spec/RT/OT/WHITE Input: New pt. Will encourage group attendance Mary Walton/Riccardo Aug 24, 2017 09:12
--- NOTE | 2017-08-24 09:18 | PD.TTN ---
Patient Problems 1. Discharge planning 2. Medication compliance 3. Knowledge deficit 4. Lack of coping skills Progress Toward Goals Provider Present: Dr. Alexander Shay Provider Input: 08/24/17 Meeting with staff to go over pt treatment. Pt is new Psychiatric Counselors Present: Jeanette Acosta LCSW Psych Therapist Input: 08/24/17 Will meet with new pt and begin treatment planningg Group Spec/RT/OT/WHITE Present: CHRISTOPHER Patrick Andrew Harrison, OT Group Spec/RT/OT/WHITE Input: 08/24/17 New pt. Will encourage group attendance Mary Walton/Riccardo Aug 24, 2017 09:18
[2017-08-24 10:57] LABS: AUTOMATED NEUTROPHIL # 12.9 TH/MM3 (1.8-7.7); BASOPHIL # 0.1 TH/MM3 (0-0.2); BASOPHIL % 0.3 % (0.0-2.0); EOSINOPHIL # 0.1 TH/MM3 (0-0.4); EOSINOPHIL % 0.8 % (0.0-4.0); HEMATOCRIT 34.5 % (39.0-51.0); HEMOGLOBIN 11.1 GM/DL (13.0-17.0); LYMPH % 10.2 % (9.0-44.0); LYMPHOCYTE # 1.6 TH/MM3 (1.0-4.8); MEAN CELL VOLUME 78.2 FL (80.0-100.0); MEAN CORPUSCULAR HEMOGLOBIN 25.1 PG (27.0-34.0); MEAN CORPUSCULAR HGB CONC 32.1 % (32.0-36.0); MEAN PLATELET VOLUME 8.1 FL (7.0-11.0); MONO % 4.3 % (0.0-8.0); MONOCYTE # 0.7 TH/MM3 (0-0.9); NEUT % 84.4 % (16.0-70.0); PLATELET COUNT 351 TH/MM3 (150-450); RED BLOOD COUNT 4.42 MIL/MM3 (4.50-5.90); RED CELL DISTRIBUTION WIDTH 16.3 % (11.6-17.2); WHITE BLOOD COUNT 15.3 TH/MM3 (4.0-11.0)
[2017-08-24 11:20] LABS: ALBUMIN 2.4 GM/DL (3.4-5.0); ALT (GPT) 15 U/L (12-78); AST (GOT) 21 U/L (15-37); BICARBONATE 25.3 MEQ/L (21.0-32.0); BLOOD UREA NITROGEN 36 MG/DL (7-18); CALCIUM 8.3 MG/DL (8.5-10.1); CHLORIDE 102 MEQ/L (98-107); GLOMERULAR FILTRATION RATE 29 ML/MIN (>89); GLUCOSE,RANDOM 236 MG/DL (74-106); SODIUM (NA) 138 MEQ/L (136-145)
[2017-08-24 11:21] LABS: ALKALINE PHOSPHATASE 79 U/L (45-117); TOTAL BILIRUBIN ADULT 0.4 MG/DL (0.2-1.0); TOTAL PROTEIN 7.3 GM/DL (6.4-8.2)
--- NOTE | 2017-08-24 11:35 | HHI.PYPN ---
Subjective Remarks Patient initially admitted by Dr. Mati Larios, his documentation and subsequent progress notes reviewed. I have finished the psychiatric inpatient admission template orders. And also review the med reconciliation. Patient seen by me today is alert fairly well oriented white male appears his stated age sitting calmly in Ek[place]ina chair he is cooperative with me states he feels somewhat better today and not so much at the end of the line. He is somewhat vague about what led to him going to the [facility]. Was given us permission speak with his . He is compliant medications. The first and second opinion petition for involuntary placement have been finished for now will continue patient's hospitalization monitoring him the need to arrange a meeting with patient's to discuss further treatment medications and placement Review of Systems Except as stated in HPI: all other systems reviewed are Neg Mental Status Examination Appearance: Appropriate Consciousness: Alert Orientation: Person, Place Motor Activity: Other (Nonambulatory) Speech: Slow Language: Adequate Fund of Knowledge: Inadequate Attention and Concentration: Adequate Memory: Unremarkable Mood: Sad Affect: Sad, Other (tearful) Thought Process & Associations: Linear Thought Content: Preoccupations (Underlying) Hallucination Type: None Delusion Type: None Suicidal Ideation: No Suicidal Plan: No Suicidal Intention: No Homicidal Ideation: No Homicidal Plan: No Homicidal Intention: No Insight: Poor Judgment: Poor Results Labs Test 08/24/17 08:55 White Blood Count 15.3 TH/MM3 Red Blood Count 4.42 MIL/MM3 Hemoglobin 11.1 GM/DL Hematocrit 34.5 % Mean Corpuscular Volume 78.2 FL Mean Corpuscular Hemoglobin 25.1 PG Mean Corpuscular Hemoglobin Concent 32.1 % Red Cell Distribution Width 16.3 % Platelet Count 351 TH/MM3 Mean Platelet Volume 8.1 FL Neutrophils (%) (Auto) 84.4 % Lymphocytes (%) (Auto) 10.2 % Monocytes (%) (Auto) 4.3 % Eosinophils (%) (Auto) 0.8 % Basophils (%) (Auto) 0.3 % Neutrophils # (Auto) 12.9 TH/MM3 Lymphocytes # (Auto) 1.6 TH/MM3 Monocytes # (Auto) 0.7 TH/MM3 Eosinophils # (Auto) 0.1 TH/MM3 Basophils # (Auto) 0.1 TH/MM3 CBC Comment DIFF FINAL Differential Comment Blood Urea Nitrogen 36 MG/DL Creatinine 2.20 MG/DL Random Glucose 236 MG/DL Total Protein 7.3 GM/DL Albumin 2.4 GM/DL Calcium Level 8.3 MG/DL Alkaline Phosphatase 79 U/L Aspartate Amino Transf (AST/SGOT) 21 U/L Alanine Aminotransferase (ALT/SGPT) 15 U/L Total Bilirubin 0.4 MG/DL Sodium Level 138 MEQ/L Potassium Level 4.0 MEQ/L Chloride Level 102 MEQ/L Carbon Dioxide Level 25.3 MEQ/L Anion Gap 11 MEQ/L Estimat Glomerular Filtration Rate 29 ML/MIN Date/Time Source Procedure Growth Status 08/21/17 07:30 Urine Random Urine Urine Culture - Final 10-50,000 CFU/ML MIXED AZALIA... Complete Vitals/IOs Vital Signs Date Time Temp Pulse Resp B/P (MAP) Pulse Ox O2 Delivery O2 Flow Rate FiO2 08/24/17 06:50 98.3 81 17 131/63 (85) 95 08/21/17 15:24 Room Air Assessment & Plan Problem List: (1) Major depressive disorder, single episode, severe without psychotic features ICD Codes: F32.2 - Major depressive disorder, single episode, severe without psychotic features Assessment & Plan Estimated LOS: days patient continues somewhat depressed though appears to have a decrease in his suicidality from admission. This compliant with medications. For now continue treatment Justification for Cont. Inpt. At this time patient decompensate placed in the lower level of care Discharge Planning Needs to be reviewed with patient's and family Bob Shay MD Aug 24, 2017 11:35
--- NOTE | 2017-08-24 12:57 | PD.TTN ---
Patient Problems 1. Discharge planning 2. Medication compliance 3. Knowledge deficit 4. Lack of coping skills Progress Toward Goals Provider Present: Dr. Alexander Shay Provider Input: Meeting with staff to go over pt treatment. Pt is new Psychiatric Counselors Present: Jeanette Acosta LCSW, Gabriela Gr, [facility] Psych Therapist Input: Will meet with new pt and begin treatment planningg Group Spec/RT/OT/WHITE Present: CHRISTOPHER Patrick, Michael Saldaña, OT Group Spec/RT/OT/WHITE Input: New pt. Will encourage group attendance Michael Saldaña OTR Aug 24, 2017 12:57
--- NOTE | 2017-08-24 14:50 | HHI.PR ---
Subjective Remarks Follow-up visit HTN, DM, hypothyroidism, CAD status post CABG in the past, history of PE and DVT. Patient seen and examined today sitting in the chair. Reports he is doing well. Denies pain and discomfort. Denies SOB/ dyspnea. Denies chest pain, palpitations, headaches, dizziness. Denies fevers, chills, n/ v/d. Objective Vitals Vital Signs Date Time Temp Pulse Resp B/P (MAP) Pulse Ox O2 Delivery O2 Flow Rate FiO2 08/24/17 06:50 98.3 81 17 131/63 (85) 95 08/24/17 04:56 98.2 85 16 95/55 (68) 08/23/17 17:38 98.4 84 18 113/66 (82) 94 I/O 08/23/17 08/23/17 08/23/17 08/24/17 08/24/17 08/24/17 07:00 15:00 23:00 07:00 15:00 23:00 Intake Total 120 ml 460 ml 660 ml 600 ml Balance 120 ml 460 ml 660 ml 600 ml Intake Oral 120 ml 460 ml 660 ml 600 ml # Voids 3 3 4 5 # Bowel Movements 2 2 5 Result Diagram: 08/24/17 0855 08/24/17 0855 Imaging Last Impressions Chest X-Ray 08/21/1743 Signed Impressions: Service Date/Time: Monday, August 21, 2017 00:47 - CONCLUSION: Stable appearance with chronic scarring at the left lung base. Jessee Alberts MD Head CT 08/21/17 0043 Signed Impressions: Service Date/Time: Monday, August 21, 2017 01:21 - CONCLUSION: 1. Low attenuation region along the medial left temporal lobe which may represent a small arachnoid cyst or area of encephalomalacia. 2. Diffuse moderate atrophic change with sulcal and ventricular prominence. 3. 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 Jessee Alberts MD Objective Remarks GENERAL: This is a well-nourished, well-developed patient, in no apparent distress. SKIN: Warm and dry HEENT: Normocephalic. Pupils equal round and reactive. Nose without bleeding. Airway patent. NECK: Trachea midline. CARDIOVASCULAR: Regular rate and rhythm without murmurs, gallops, or rubs. RESPIRATORY: Clear to auscultation. Breath sounds equal bilaterally. No wheezes , rales, or rhonchi. GASTROINTESTINAL: Abdomen soft, non-tender, protuberant. Bowel Sounds hypoactive. MUSCULOSKELETAL: Extremities without clubbing, cyanosis. Bilateral lower extremity trace edema. NEUROLOGICAL: Awake and alert. Oriented to place, person. Moves all extremities. Normal speech. A/P Problem List: (1) Major depressive disorder, single episode, severe without psychotic features ICD Code: F32.2 - Major depressive disorder, single episode, severe without psychotic features (2) Hypertension ICD Code: I10 - Essential (primary) hypertension (3) UTI (urinary tract infection) ICD Code: N39.0 - Urinary tract infection, site not specified (4) Diabetes mellitus ICD Code: E11.9 - Type 2 diabetes mellitus without complications (5) CKD (chronic kidney disease) ICD Code: N18.9 - Chronic kidney disease, unspecified Assessment and Plan 87-year-old male with a past medical history significant for major depressive disorder, hypertension, diabetes, hypothyroidism, coronary artery disease status post CABG, history of PE and DVT, COPD, anemia, GERD and BPH who presented to [facility] ED as a Kruger act initiated by clinical psychologist at [facility] due to patient tending to cut his wrist with dull objects. Patient has since been admitted to the inpatient psychiatric unit and hospitalist services of been consulted for medical management. Major depressive disorder -Management per psychiatric team Advanced age Physical deconditioning -PT eval/treat Hypertension, controlled -Continue on Lopressor 25 mg daily. Start low-dose Norvasc -Continue to monitor BP and adjust treatment accordingly CAD s/p CABG Hx of PE/DVT -Patient has no cardiac complaints at this time -resume on Xarelto -monitor UTI -Symptomatic -UA with moderate leukocytes, 65 red blood cells, 23 white blood cells, occasional bacteria, culture indicated -on Ceftin 250 mg twice a day -Urine culture 10-50,000 mixed gene. DC Ceftin DM 2, moderately controlled -HgbA1c 6.8 -Resume patient on home dose of glipizide 5 mg daily, resume Januvia but at decreased dose of 50 mg daily secondary to kidney dysfunction -Accu-Chek and insulin sliding scale -Continue to monitor blood sugars Chronic kidney disease, stage 3 -Baseline 1.6-1.7 -creatinine 1.74 --> 1.74 --> 2.20 -Avoid nephrotoxic agents -Renally dose medications -P.o. fluid hydration, start IV fluids if inadequate p.o. intake. -Consult nephrology if continues to decline Anemia, microcytic, hypochromic -Low iron, will start iron supplements -Hemoglobin appears stable -Continue to monitor intermittently. This could also be from kidney injury COPD, not in acute exacerbation -CXR shows stable appearance, chronic scarring left lung base, images reviewed by me [place] as needed -Continue to monitor respiratory status Hypothyroidism -TSH 8.210 -Increase home dose of levothyroxine to 112 g daily -patient will need to have TSH level redrawn as outpatient in 6-8 weeks GERD -Resume on PPI BPH -Resume home dose of Flomax DVT prophylaxis -patient is on Cesar Mcgrath Aug 24, 2017 14:50
[2017-08-24 18:00] VITALS: BP 111/63; PULSE 78; RESP 16; TEMP 98; O2SAT 96
[2017-08-24] MEDS: RIVAROXABAN 15 MG TAB PO SCH (21:52)
[2017-08-24] MEDS: ATORVASTATIN 10 MG TAB PO SCH (21:52)
[2017-08-24] MEDS: TAMSULOSIN HCL 0.4 MG CAP PO SCH (21:52)
[2017-08-25 05:54] VITALS: BP 127/72; PULSE 77; RESP 18; TEMP 97.4; O2SAT 96
[2017-08-25] MEDS: LEVOTHYROXINE SODIUM 112 MCG TAB PO SCH (06:23)
[2017-08-25] MEDS: INSULIN ASPART SUPPLEMENTAL SCALE SQ SCH ×4 (08:00→20:46)
[2017-08-25] MEDS: PANTOPRAZOLE SOD 40 MG DELAYED RELEASE TAB PO SCH (08:35)
[2017-08-25] MEDS: glipiZIDE 5 MG TAB PO SCH (08:35)
[2017-08-25] MEDS: MULTIVITAMINS/MINERALS THERAPEUTIC TAB PO SCH (08:35)
[2017-08-25] MEDS: FOLIC ACID 1 MG TAB PO SCH (08:35)
[2017-08-25] MEDS: METOPROLOL TARTRATE 25 MG TAB PO SCH (08:36)
[2017-08-25] MEDS: amLODIPine BESYLATE 5 MG TAB PO SCH (08:36)
[2017-08-25] MEDS: NICOTINE 21 MG/24 HR PATCH T-DERMAL SCH (09:00)
[2017-08-25] MEDS: CITALOPRAM HYDROBROMIDE 20 MG TAB PO SCH (09:00)
[2017-08-25] MEDS: ARIPiprazole 2 MG TAB PO SCH (09:00)
[2017-08-25 09:17] LABS: BICARBONATE 24.6 MEQ/L (21.0-32.0); CALCIUM 8.3 MG/DL (8.5-10.1); CREATININE 1.94 MG/DL (0.60-1.30)
--- NOTE | 2017-08-25 09:48 | HHI.PYPN ---
Subjective Remarks Patient seen in his room with nurse Miguel A and counselor Jeanette, chart reviewed, patient compliant medications, patient discussed with nurse. Patient somewhat upset and irritable. Somewhat related to his need for total care. At this time I feel patient needs a better be met by transfer to [facility]. There continues to ideation though he denies any specific suicidality. Review of Systems Except as stated in HPI: all other systems reviewed are Neg Mental Status Examination Appearance: Appropriate Consciousness: Alert Orientation: Person, Place Motor Activity: Other (Nonambulatory) Speech: Slow Language: Adequate Fund of Knowledge: Inadequate Attention and Concentration: Adequate Memory: Unremarkable Mood: Sad Affect: Sad, Other (tearful) Thought Process & Associations: Linear Thought Content: Preoccupations (Underlying) Hallucination Type: None Delusion Type: None Suicidal Ideation: No Suicidal Plan: No Suicidal Intention: No Homicidal Ideation: No Homicidal Plan: No Homicidal Intention: No Insight: Poor Judgment: Poor Results Labs Test 08/25/17 07:55 Blood Urea Nitrogen 32 MG/DL Creatinine 1.94 MG/DL Random Glucose 131 MG/DL Calcium Level 8.3 MG/DL Sodium Level 139 MEQ/L Potassium Level 4.2 MEQ/L Chloride Level 105 MEQ/L Carbon Dioxide Level 24.6 MEQ/L Anion Gap 9 MEQ/L Estimat Glomerular Filtration Rate 33 ML/MIN Date/Time Source Procedure Growth Status 08/21/17 07:30 Urine Random Urine Urine Culture - Final 10-50,000 CFU/ML MIXED AZALIA... Complete Vitals/IOs Vital Signs Date Time Temp Pulse Resp B/P (MAP) Pulse Ox O2 Delivery O2 Flow Rate FiO2 08/25/17 05:54 97.4 77 18 127/72 (90) 96 08/21/17 15:24 Room Air Assessment & Plan Problem List: (1) Major depressive disorder, single episode, severe without psychotic features ICD Codes: F32.2 - Major depressive disorder, single episode, severe without psychotic features Assessment & Plan Estimated LOS: days patient continues depressed somewhat irritable with ideation, compliant medications. Will transfer patient to [facility]. to help with his daily needs. He does day total care Justification for Cont. Inpt. At this time patient would decompensated place to the lower level of care Discharge Planning Need to verify that patient can return to his [facility] Bob Shay MD Aug 25, 2017 09:48
--- NOTE | 2017-08-25 14:58 | HHI.PR ---
Subjective Remarks Follow-up visit HTN, DM, hypothyroidism, CAD status post CABG in the past, history of PE and DVT. Patient seen and examined today laying in bed. Reports he is doing okay. Denies pain and discomfort. Denies SOB/ dyspnea. Denies chest pain, palpitations, headaches, dizziness. Denies fevers, chills, n/v/d. Objective Vitals Vital Signs Date Time Temp Pulse Resp B/P (MAP) Pulse Ox O2 Delivery O2 Flow Rate FiO2 08/25/17 05:54 97.4 77 18 127/72 (90) 96 08/24/17 18:00 98.0 78 16 111/63 (79) 96 I/O 08/24/17 08/24/17 08/24/17 08/25/17 08/25/17 08/25/17 07:00 15:00 23:00 07:00 15:00 23:00 Intake Total 600 ml 960 ml Balance 600 ml 960 ml Intake Oral 600 ml 960 ml # Voids 4 5 2 4 # Bowel Movements 5 1 Result Diagram: 08/24/17 0855 08/25/17 0755 Imaging Last Impressions Abdomen X-Ray 08/24/17 0335 Signed Impressions: Service Date/Time: Thursday, August 24, 2017 04:00 - CONCLUSION: Multiple dilated small and large bowel loops. Distal obstruction should be excluded. Mati Jeronimo MD Abdomen/Pelvis CT 08/24/17 0000 Signed Impressions: Service Date/Time: Thursday, August 24, 2017 05:41 - CONCLUSION: 1. Left basilar consolidation. 2. Mildly prominent small bowel loops without definite obstruction. 3. Diverticulosis without diverticulitis. 4. Nonobstructing bilateral renal calculi. 5. Status post cholecystectomy. 6. Small hiatal hernia. Mati Jeronimo MD Chest X-Ray 08/21/17 0044 Signed Impressions: Service Date/Time: Monday, August 21, 2017 00:47 - CONCLUSION: Stable appearance with chronic scarring at the left lung base. Jessee Alberts MD Head CT 08/21/17 0043 Signed Impressions: Service Date/Time: Monday, August 21, 2017 01:21 - CONCLUSION: 1. Low attenuation region along the medial left temporal lobe which may represent a small arachnoid cyst or area of encephalomalacia. 2. Diffuse moderate atrophic change with sulcal and ventricular prominence. 3. 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 Jessee Alberts MD Objective Remarks GENERAL: This is a well-nourished, well-developed patient, in no apparent distress. SKIN: Warm and dry HEENT: Normocephalic. Pupils equal round and reactive. Nose without bleeding. Airway patent. NECK: Trachea midline. CARDIOVASCULAR: Regular rate and rhythm without murmurs, gallops, or rubs. RESPIRATORY: Clear to auscultation. Breath sounds equal bilaterally. No wheezes , rales, or rhonchi. GASTROINTESTINAL: Abdomen soft, non-tender, protuberant. Bowel Sounds hypoactive. MUSCULOSKELETAL: Extremities without clubbing, cyanosis. Bilateral lower extremity trace edema. NEUROLOGICAL: Awake and alert. Oriented to place, person. Moves all extremities. Normal speech. A/P Problem List: (1) Major depressive disorder, single episode, severe without psychotic features ICD Code: F32.2 - Major depressive disorder, single episode, severe without psychotic features (2) Hypertension ICD Code: I10 - Essential (primary) hypertension (3) UTI (urinary tract infection) ICD Code: N39.0 - Urinary tract infection, site not specified (4) Diabetes mellitus ICD Code: E11.9 - Type 2 diabetes mellitus without complications (5) CKD (chronic kidney disease) ICD Code: N18.9 - Chronic kidney disease, unspecified Assessment and Plan 87-year-old male with a past medical history significant for major depressive disorder, hypertension, diabetes, hypothyroidism, coronary artery disease status post CABG, history of PE and DVT, COPD, anemia, GERD and BPH who presented to [facility] ED as a Kruger act initiated by clinical psychologist at [facility] due to patient tending to cut his wrist with dull objects. Patient has since been admitted to the inpatient psychiatric unit and hospitalist services of been consulted for medical management. Major depressive disorder -Management per psychiatric team Advanced age Physical deconditioning -PT eval/treat Hypertension, controlled -Continue on Lopressor 25 mg daily. Start low-dose Norvasc -Continue to monitor BP and adjust treatment accordingly CAD s/p CABG Hx of PE/DVT -Patient has no cardiac complaints at this time -resume on Xarelto -monitor UTI -Symptomatic -UA with moderate leukocytes, 65 red blood cells, 23 white blood cells, occasional bacteria, culture indicated -on Ceftin 250 mg twice a day -Urine culture 10-50,000 mixed gene. DC Ceftin DM 2, moderately controlled -HgbA1c 6.8 -Resume patient on home dose of glipizide 5 mg daily, resume Januvia but at decreased dose of 50 mg daily secondary to kidney dysfunction -Accu-Chek and insulin sliding scale -Continue to monitor blood sugars Chronic kidney disease, stage 3 -Baseline 1.6-1.7 -creatinine 1.74 --> 1.74 --> 2.20 -->1.94 -Avoid nephrotoxic agents -Renally dose medications -P.o. fluid hydration, start IV fluids if inadequate p.o. intake. -Consult nephrology if continues to decline Anemia, microcytic, hypochromic -Low iron, will start iron supplements -Hemoglobin appears stable -Continue to monitor intermittently. This could also be from kidney injury COPD, not in acute exacerbation -CXR shows stable appearance, chronic scarring left lung base, images reviewed by me [place] as needed -Continue to monitor respiratory status Hypothyroidism -TSH 8.210 -Increase home dose of levothyroxine to 112 g daily -patient will need to have TSH level redrawn as outpatient in 6-8 weeks GERD -Resume on PPI BPH -Resume home dose of Flomax Leukocytosis -Recheck UA for now -Recheck labs in a.m. DVT prophylaxis -patient is on Cesar Mcgrath Aug 25, 2017 14:58
[2017-08-25] MEDS ORDERED: SODIUM CHLORID 0.9% 500 ML INJ 500 ML IV SCH (16:00)
[2017-08-25 18:39] VITALS: BP 112/61; PULSE 75; RESP 18; TEMP 98.1; O2SAT 95
[2017-08-25] MEDS: TAMSULOSIN HCL 0.4 MG CAP PO SCH (20:45)
[2017-08-25] MEDS: diphenhydrAMINE HCL 50 MG CAP PO PRN (20:45)
[2017-08-25] MEDS: ATORVASTATIN 10 MG TAB PO SCH (20:45)
[2017-08-25] MEDS: RIVAROXABAN 15 MG TAB PO SCH (21:30)
[2017-08-26 06:00] VITALS: BP 147/72; PULSE 71; RESP 18; TEMP 98; O2SAT 94
[2017-08-26] MEDS: LEVOTHYROXINE SODIUM 112 MCG TAB PO SCH (06:00)
[2017-08-26] MEDS: INSULIN ASPART SUPPLEMENTAL SCALE SQ SCH ×2 (07:36→11:39)
--- NOTE | 2017-08-26 08:50 | HHI.PR ---
Subjective Remarks [id number] visit HTN, DM, hypothyroidism, CAD status post CABG in the past, history of PE and DVT. Patient seen and examined today laying in bed. Reports he is doing okay. Denies pain and discomfort. Denies SOB/ dyspnea. Denies chest pain, palpitations, headaches, dizziness. Denies fevers, chills, n/v/d. NO CURRENT COMPLAINTS STATES HE WANTS TO GO HOME DW RN AND PT Objective Vitals Vital Signs Date Time Temp Pulse Resp B/P (MAP) Pulse Ox O2 Delivery O2 Flow Rate FiO2 08/26/17 06:00 98.0 71 18 147/72 (97) 94 08/25/17 18:39 98.1 75 18 112/61 (78) 95 I/O 08/25/17 08/25/17 08/25/17 08/26/17 08/26/17 08/26/17 06:59 14:59 22:59 06:59 14:59 22:59 Intake Total 1440 ml 0 ml 120 ml Balance 1440 ml 0 ml 120 ml Intake Oral 1440 ml 0 ml 120 ml # Voids 4 3 2 # Bowel Movements 1 1 1 Result Diagram: 08/24/17 0855 08/25/17 0755 Other Results Laboratory Tests Test 08/24/17 08:55 08/25/17 07:55 White Blood Count 15.3 TH/MM3 Red Blood Count 4.42 MIL/MM3 Hemoglobin 11.1 GM/DL Hematocrit 34.5 % Mean Corpuscular Volume 78.2 FL Mean Corpuscular Hemoglobin 25.1 PG Mean Corpuscular Hemoglobin Concent 32.1 % Red Cell Distribution Width 16.3 % Platelet Count 351 TH/MM3 Mean Platelet Volume 8.1 FL Neutrophils (%) (Auto) 84.4 % Lymphocytes (%) (Auto) 10.2 % Monocytes (%) (Auto) 4.3 % Eosinophils (%) (Auto) 0.8 % Basophils (%) (Auto) 0.3 % Neutrophils # (Auto) 12.9 TH/MM3 Lymphocytes # (Auto) 1.6 TH/MM3 Monocytes # (Auto) 0.7 TH/MM3 Eosinophils # (Auto) 0.1 TH/MM3 Basophils # (Auto) 0.1 TH/MM3 CBC Comment DIFF FINAL Differential Comment Blood Urea Nitrogen 36 MG/DL 32 MG/DL Creatinine 2.20 MG/DL 1.94 MG/DL Random Glucose 236 MG/DL 131 MG/DL Total Protein 7.3 GM/DL Albumin 2.4 GM/DL Calcium Level 8.3 MG/DL 8.3 MG/DL Alkaline Phosphatase 79 U/L Aspartate Amino Transf (AST/SGOT) 21 U/L Alanine Aminotransferase (ALT/SGPT) 15 U/L Total Bilirubin 0.4 MG/DL Sodium Level 138 MEQ/L 139 MEQ/L Potassium Level 4.0 MEQ/L 4.2 MEQ/L Chloride Level 102 MEQ/L 105 MEQ/L Carbon Dioxide Level 25.3 MEQ/L 24.6 MEQ/L Anion Gap 11 MEQ/L 9 MEQ/L Estimat Glomerular Filtration Rate 29 ML/MIN 33 ML/MIN Imaging Last Impressions Abdomen X-Ray 08/24/17 0335 Signed Impressions: Service Date/Time: Thursday, August 24, 2017 04:00 - CONCLUSION: Multiple dilated small and large bowel loops. Distal obstruction should be excluded. Mati Jeronimo MD Abdomen/Pelvis CT 08/24/17 0000 Signed Impressions: Service Date/Time: Thursday, August 24, 2017 05:41 - CONCLUSION: 1. Left basilar consolidation. 2. Mildly prominent small bowel loops without definite obstruction. 3. Diverticulosis without diverticulitis. 4. Nonobstructing bilateral renal calculi. 5. Status post cholecystectomy. 6. Small hiatal hernia. Mati Jeronimo MD Chest X-Ray 08/21/17 0044 Signed Impressions: Service Date/Time: Monday, August 21, 2017 00:47 - CONCLUSION: Stable appearance with chronic scarring at the left lung base. Jessee Alberts MD Head CT 08/21/17 0043 Signed Impressions: Service Date/Time: Monday, August 21, 2017 01:21 - CONCLUSION: 1. Low attenuation region along the medial left temporal lobe which may represent a small arachnoid cyst or area of encephalomalacia. 2. Diffuse moderate atrophic change with sulcal and ventricular prominence. 3. 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 Jessee Alberts MD Objective Remarks GENERAL: Awake alert and oriented 2 talkative and cooperative but confused SKIN: Warm and dry. HEAD: Atraumatic. Normocephalic. EYES: Pupils equal and round. No scleral icterus. No injection or drainage. EOMI ENT: No nasal bleeding or discharge. Mucous membranes pink and moist. Tongue is midline NECK: Trachea midline. No JVD. Supple CARDIOVASCULAR: Regular rate and rhythm. S1-S2 no S3 or S4 RESPIRATORY: No accessory muscle use. Clear to auscultation. Breath sounds equal bilaterally. GASTROINTESTINAL: Abdomen soft, non-tender, nondistended. Hepatic and splenic margins not palpable. MUSCULOSKELETAL: Extremities without clubbing, cyanosis, or edema. No obvious deformities. NEUROLOGICAL: Awake and alert. No obvious cranial nerve deficits. Motor grossly within normal limits. Five out of 5 muscle strength in the arms and legs. Normal speech. PSYCHIATRIC: INAppropriate mood and affect; insight and judgment ABnormal. Procedures NONE Medications and IVs Current Medications Lorazepam (Ativan) 0.5 mg Q12H PRN PO MODERATE TO SEVERE ANXIETY Last administered on 08/22/17at 01:12; Start 08/21/17 at 16:00 Lorazepam (Ativan Inj) 0.5 mg Q12H PRN IM MODERATE TO SEVERE ANXIETY; Start at 16:00 Diphenhydramine HCl (Benadryl) 50 mg HS PRN PO INSOMNIA Last administered on at 20:45; Start 08/21/17 at 16:00 Acetaminophen (Tylenol) 650 mg Q4H PRN PO Pain 1-5 or Temp >101F Last administered on 08/22/17at 21:36; Start 08/21/17 at 16:00 Magnesium Hydroxide (Milk Of Magnesia Liq) 30 ml DAILY PRN PO CONSTIPATION Last administered on 08/23/17at 18:37; Start 08/21/17 at 16:00 Al Hydrox/Mg Hydrox/Simethicone (Mag-Al Plus Susp Liq) 30 ml Q6H PRN PO DYSPEPSIA; Start 08/21/17 at 16:00 Nicotine (Habitrol 21 Mg Patch.24 Hr) 1 patch DAILY T-DERMAL ; Start 08/22/17 at 09:00 Sertraline HCl (Zoloft) 25 mg ONCE ONCE PO Last administered on 08/21/17at 19: 56; Start 08/21/17 at 16:30; Stop 08/21/17 at 16:31; Status DC Sertraline HCl (Zoloft) 50 mg DAILY PO Last administered on 08/24/17at 09:01; Start 08/22/17 at 09:00; Stop 08/25/17 at 09:57; Status DC Miscellaneous (Pill Splitter) 1 ea UNSCH PRN OTHER SEE LABEL COMMENTS; Start at 16:30 Atorvastatin Calcium (Lipitor) 10 mg HS PO Last administered on 08/25/17at 20:45 ; Start 08/22/17 at 21:00 Folic Acid (Folate) 1 mg DAILY PO Last administered on 08/25/17at 08:35; Start 08/22/17 at 09:00 Glipizide (Glucotrol) 5 mg DAILY PO Last administered on 08/25/17at 08:35; Start 08/22/17 at 09:00 Levothyroxine Sodium (Synthroid) 100 mcg DAILY@0600 PO Last administered on at 09:00; Start 08/22/17 at 09:00; Stop 08/22/17 at 13:30; Status DC Metoprolol Tartrate (Lopressor) 25 mg DAILY PO Last administered on 08/25/17at 08:36; Start 08/22/17 at 09:00 Multivitamins/ Minerals Therapeutic (Theragran M Tab) 1 tab DAILY PO Last administered on 08/25/17at 08:35; Start 08/22/17 at 09:00 Rivaroxaban (Xarelto) 15 mg HS PO Last administered on 08/25/17at 21:30; Start 08/22/17 at 21:00 Sitagliptin Phosphate (Januvia) 100 mg DAILY PO ; Start 08/22/17 at 09:00; Stop 08/22/17 at 09:05; Status DC Tamsulosin HCl (Flomax) 0.4 mg HS PO Last administered on 08/25/17at 20:45; Start 08/22/17 at 21:00 Pantoprazole Sodium (Protonix) 40 mg DAILY PO Last administered on 08/25/17at 08 :35; Start 08/22/17 at 09:00 Non-Formulary Medication 250 mg BID PO ; Start 08/22/17 at 09:00; Status UNV Dextrose (D50w (Vial) Inj) 50 ml UNSCH PRN IV PUSH HYPOGLYCEMIA-SEE COMMENTS; Start 08/22/17 at 08:30 Glucagon (Glucagon Inj) 1 mg UNSCH PRN OTHER HYPOGLYCEMIA-SEE COMMENTS; Start 08/22/17 at 08:30 Insulin Aspart (NovoLOG SUPPLEMENTAL SCALE) 1 ACHS SLIDING SCALE SQ Last administered on 08/25/17at 11:21; Start 08/22/17 at 12:00 Albuterol/ Ipratropium (Duoneb Neb) 1 ampule Q4HR NEB PRN NEB Cough, wheezing, dyspnea; Start 08/22/17 at 09:00 Cefuroxime Axetil (Ceftin) 250 mg Q12HR PO Last administered on 08/24/17at 09:01 ; Start 08/22/17 at 21:00; Stop 08/24/17 at 15:31; Status DC Cefuroxime Axetil (Ceftin) 250 mg ONCE ONCE PO Last administered on 08/22/17at 10:00; Start 08/22/17 at 10:00; Stop 08/22/17 at 10:01; Status DC Sitagliptin Phosphate (Januvia) 50 mg DAILY PO Last administered on 08/25/17at 08:35; Start 08/23/17 at 09:00 Levothyroxine Sodium (Synthroid) 112 mcg DAILY@0600 PO Last administered on at 06:23; Start 08/23/17 at 06:00 Trimethobenzamide HCl (Tigan Inj) 200 mg Q6H PRN IM NAUSEA OR VOMITING Last administered on 08/24/17at 04:54; Start 08/24/17 at 03:45 Aripiprazole (Abilify) 2 mg DAILY PO ; Start 08/25/17 at 09:00 Citalopram Hydrobromide (CeleXA) 20 mg DAILY PO ; Start 08/25/17 at 09:00 Amlodipine Besylate (Norvasc) 2.5 mg DAILY PO Last administered on 08/25/17at 08 :36; Start 08/25/17 at 09:00 Sertraline HCl (Zoloft) 75 mg DAILY PO ; Start 08/26/17 at 09:00 Ferrous Sulfate (Ferrous Sulfate) 325 mg DAILY PO ; Start 08/26/17 at 09:00 Sodium Chloride 500 ml @ 75 mls/hr Q6H40M IV ; Start 08/25/17 at 16:00; Stop at 22:39; Status DC A/P Problem List: (1) Major depressive disorder, single episode, severe without psychotic features ICD Code: F32.2 - Major depressive disorder, single episode, severe without psychotic features (2) Hypertension ICD Code: I10 - Essential (primary) hypertension (3) UTI (urinary tract infection) ICD Code: N39.0 - Urinary tract infection, site not specified (4) Diabetes mellitus ICD Code: E11.9 - Type 2 diabetes mellitus without complications (5) CKD (chronic kidney disease) ICD Code: N18.9 - Chronic kidney disease, unspecified Assessment and Plan 87-year-old male with a past medical history significant for major depressive disorder, hypertension, diabetes, hypothyroidism, coronary artery disease status post CABG, history of PE and DVT, COPD, anemia, GERD and BPH who presented to [facility] ED as a Kruger act initiated by clinical psychologist at [facility] due to patient tending to cut his wrist with dull objects. Patient has since been admitted to the inpatient psychiatric unit and hospitalist services of been consulted for medical management. Major depressive disorder -Management per psychiatric team Advanced age Physical deconditioning -PT eval/treat Hypertension, controlled -Continue on Lopressor 25 mg daily. Start low-dose Norvasc -Continue to monitor BP and adjust treatment accordingly CAD s/p CABG Hx of PE/DVT -Patient has no cardiac complaints at this time -resume on Xarelto -monitor UTI -Symptomatic -UA with moderate leukocytes, 65 red blood cells, 23 white blood cells, occasional bacteria, culture indicated -on Ceftin 250 mg twice a day -Urine culture 10-50,000 mixed gene. DC Ceftin DM 2, moderately controlled -HgbA1c 6.8 -Resume patient on home dose of glipizide 5 mg daily, resume Januvia but at decreased dose of 50 mg daily secondary to kidney dysfunction -Accu-Chek and insulin sliding scale -Continue to monitor blood sugars Chronic kidney disease, stage 3 -Baseline 1.6-1.7 -creatinine 1.74 --> 1.74 --> 2.20 -->1.94 -Avoid nephrotoxic agents -Renally dose medications -P.o. fluid hydration, start IV fluids if inadequate p.o. intake. -Consult nephrology if continues to decline Anemia, microcytic, hypochromic -Low iron, will start iron supplements -Hemoglobin appears stable -Continue to monitor intermittently. This could also be from kidney injury COPD, not in acute exacerbation -CXR shows stable appearance, chronic scarring left lung base, images reviewed by -Nena's as needed -Continue to monitor respiratory status Hypothyroidism -TSH 8.210 -Increase home dose of levothyroxine to 100 g daily -patient will need to have TSH level redrawn as outpatient in 6-8 weeks GERD -Resume on PPI BPH -Resume home dose of Flomax Leukocytosis -Recheck UA for now -Recheck labs in a.m. DVT prophylaxis -patient is on Xarelto Stage II sacral decub continue current dressing consult wound care Discharge Planning Pending psychiatric clearance Pino Martinez DO Aug 26, 2017 08:50
[2017-08-26] MEDS ORDERED: SERTRALINE HCL 50 MG TAB PO SCH (09:00)
[2017-08-26] MEDS: NICOTINE 21 MG/24 HR PATCH T-DERMAL SCH (09:00)
[2017-08-26] MEDS ORDERED: FERROUS SULFATE 325 MG (65 MG ELEMENTAL IRON) TAB PO SCH (09:00)
[2017-08-26] MEDS: MULTIVITAMINS/MINERALS THERAPEUTIC TAB PO SCH (09:20)
[2017-08-26] MEDS: amLODIPine BESYLATE 5 MG TAB PO SCH (09:21)
[2017-08-26] MEDS: METOPROLOL TARTRATE 25 MG TAB PO SCH (09:22)
[2017-08-26] MEDS: PANTOPRAZOLE SOD 40 MG DELAYED RELEASE TAB PO SCH (09:22)
[2017-08-26] MEDS: FOLIC ACID 1 MG TAB PO SCH (09:22)
[2017-08-26] MEDS: glipiZIDE 5 MG TAB PO SCH (09:22)
[2017-08-26] MEDS: CITALOPRAM HYDROBROMIDE 20 MG TAB PO SCH (09:30)
[2017-08-26] MEDS: ARIPiprazole 2 MG TAB PO SCH (09:31)
[2017-08-26] MEDS ORDERED: SYNT112T PO (09:40)
[2017-08-26] MEDS ORDERED: ZOLO50TA PO (09:40)
[2017-08-26] MEDS ORDERED: AMLO5 PO (09:40)
[2017-08-26] MEDS ORDERED: FERR325T20 PO (09:40)
--- NOTE | 2017-08-26 09:44 | HHI.DS ---
Psychiatry Discharge Summary Inpatient Psychiatric care?: Yes Advance Directive: No Reason Not Provided: Due to Patient Condition Mental Health AdvanceDirective: No Health Care Proxy: No Admission Admission Date Aug 21, 2017 at 16:00 Admission Diagnosis: (1) Major depressive disorder, single episode, severe without psychotic features ICD Code: F32.2 - Major depressive disorder, single episode, severe without psychotic features Brief History Patient is an 87-year-old man , domiciled in a nursing facility with no formal past psychiatric history, no prior psychiatric admission , one previous suicide attempt years ago via overdose, no self interest behavior , with a past medical history significant for COPD, diabetes, BPH, nonambulatory , currently requiring total care, no substance use history, was brought in under Kruger act by clinical psychologist at the facility at the patient have attempted to cut wrists with L object and wanted to which patient was admitted to the inpatient psychiatry for further evaluation and management. As per the Kruger act patient was noted to have significant depressive symptoms with ongoing suicide ideation with clear intent as patient reported planning to kill himself by suffocation or slitting his wrists with dull objects. Patient was found lying hospital bed noted B, cooperative although noted to have some psychomotor retardation. Patient states that he did not want to live anymore for the past 2 years but has been worse recently after his told him that he cannot return home until he was able to return to his previous function which is likely unlikely due to his current physical state. Patient states that his recent stressors are that he is not able to be at home, cannot get at when he wants to and able to return to his previous function. Patient states that he has had thoughts of not wanting to be alive and recent thoughts of ways he would end his life such as drowning himself in a lewis. Patient states he has had one remote suicide attempt years ago via overdose. Patient this time reports decreased energy feeling depressed, helpless and hopeless but no changes sleep, appetite or concentration. Patient continues to have active suicidal ideations denies any perceptual disturbances or delusions at this time. Past psychiatric history: Patient denies although as per chart previous psychiatric diagnoses of depression, no previous psychiatric admissions, one previous suicide attempt years ago, no self interest behavior patient reports having been on medications for depression in the past but cannot recall at this time. Past medical history: COPD, diabetes, BPH Allergies: Ibuprofen Substance use history denies Social history: , domiciled nursing facility. Tobacco Use In Past 30 Days: No Tobacco Past 30 Days Alcohol Use: Never Hospital Course Patient's hospital course was uneventful, his depression is frustration with his inability to maintain his own ADLs was evident. But he showed some processing of it. There is overall cooperative with the staff.Is well oriented , is calm and pleasant with me, compliant medications. Patient has been denying suicidality homicidality voices or visions. He should seen today he continues to deny any suicidality or wish. He wishes to return to the [facility]. He has had good visits with his family also. This time patient a longer meets criteria for inpatient psychiatric hospitalization. Thus patient will be discharged today to [facility] with Rx 1 month and continuation of his other scheduled medications to follow-up with [facility] through that facility Results Blood Pressure 147 / 72 Vital Signs Date Time Temp Pulse Resp B/P (MAP) Pulse Ox O2 Delivery O2 Flow Rate FiO2 08/26/17 06:00 98.0 71 18 147/72 (97) 94 Laboratory Tests Test 08/24/17 08:55 08/25/17 07:55 White Blood Count 15.3 TH/MM3 (4.0-11.0) Red Blood Count 4.42 MIL/MM3 (4.50-5.90) Hemoglobin 11.1 GM/DL (13.0-17.0) Hematocrit 34.5 % (39.0-51.0) Mean Corpuscular Volume 78.2 FL (80.0-100.0) Mean Corpuscular Hemoglobin 25.1 PG (27.0-34.0) Neutrophils (%) (Auto) 84.4 % (16.0-70.0) Neutrophils # (Auto) 12.9 TH/MM3 (1.8-7.7) Blood Urea Nitrogen 36 MG/DL (7-18) 32 MG/DL (7-18) Creatinine 2.20 MG/DL (0.60-1.30) 1.94 MG/DL (0.60-1.30) Random Glucose 236 MG/DL (74-106) 131 MG/DL (74-106) Albumin 2.4 GM/DL (3.4-5.0) Calcium Level 8.3 MG/DL (8.5-10.1) 8.3 MG/DL (8.5-10.1) Estimat Glomerular Filtration Rate 29 ML/MIN (>89) 33 ML/MIN (>89) Laboratory Results Test 08/22/17 12:20 Cholesterol Level 61 MG/DL (120-200) HDL Cholesterol 27.5 MG/DL (40.0-60.0) Hemoglobin A1c 6.8 % (4.3-6.0) LDL Cholesterol 11 MG/DL (0-99) Triglycerides Level 115 MG/DL (42-150) Summary of Procedures None done Imaging Last Impressions Abdomen X-Ray 08/24/17 0335 Signed Impressions: Service Date/Time: Thursday, August 24, 2017 04:00 - CONCLUSION: Multiple dilated small and large bowel loops. Distal obstruction should be excluded. Mati Jeronimo MD Abdomen/Pelvis CT 08/24/17 0000 Signed Impressions: Service Date/Time: Thursday, August 24, 2017 05:41 - CONCLUSION: 1. Left basilar consolidation. 2. Mildly prominent small bowel loops without definite obstruction. 3. Diverticulosis without diverticulitis. 4. Nonobstructing bilateral renal calculi. 5. Status post cholecystectomy. 6. Small hiatal hernia. Mati Jeronimo MD Chest X-Ray 08/21/17 0044 Signed Impressions: Service Date/Time: Monday, August 21, 2017 00:47 - CONCLUSION: Stable appearance with chronic scarring at the left lung base. Jessee Alberts MD Head CT 08/21/17 0043 Signed Impressions: Service Date/Time: Monday, August 21, 2017 01:21 - CONCLUSION: 1. Low attenuation region along the medial left temporal lobe which may represent a small arachnoid cyst or area of encephalomalacia. 2. Diffuse moderate atrophic change with sulcal and ventricular prominence. 3. 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 Jessee Alberts MD Pending results at discharge: No Medications # of Antipsychotic meds at D/C: 1 Approp Antipsych med options 1 - Minimum of three failed multiple trials of monotherapy. 2 - Documented plan to taper to monotherapy due to previous use of multiple meds OR cross-taper in progress at D/C. 3 - Documentation of augmentation of Clozapine. 4 - Justification other than those listed in allowable values 1-3, document here : Discharge Discharge Date: Aug 26, 2017 Discharge Diagnosis: (1) Major depressive disorder, single episode, severe without psychotic features Diagnosis: Principal ICD Code: F32.2 - Major depressive disorder, single episode, severe without psychotic features Pt Condition on Discharge: Stable Discharge Disposition: Discharge to SNF Discharge Instructions Diet Instructions: As Tolerated, No Restrictions Activities you can perform: Regular-No Restrictions Scheduled Appointment: Facility provider Appointment Date: Aug 27, 2017 Appointment Time: 08:30am Discharge Time > 30 minutes Mental Status Examination Appearance: Appropriate Consciousness: Alert Orientation: Person, Place Motor Activity: Other (Nonambulatory) Speech: Slow Language: Adequate Fund of Knowledge: Inadequate Attention and Concentration: Adequate Memory: Unremarkable Mood: Sad Affect: Sad, Other (tearful) Thought Process & Associations: Linear Thought Content: Preoccupations (Underlying) Hallucination Type: None Delusion Type: None Suicidal Ideation: No Suicidal Plan: No Suicidal Intention: No Homicidal Ideation: No Homicidal Plan: No Homicidal Intention: No Insight: Poor Judgment: Poor Discharge/Advance Care Plan Health Problems: (1) Major depressive disorder, single episode, severe without psychotic features Goals to promote your health * To prevent worsening of your condition and complications * To maintain your health at the optimal level Directions to meet your goals Take your medications as prescribed Follow your dietary instruction Follow activity as directed Keep your appointments as scheduled Take your immunizations and boosters as scheduled If your symptoms worsen call your PCP, if no PCP go to Urgent Care Center or Emergency Room For 22/12 questions related to your inpatient stay or results of tests pending at discharge, please contact Dr. Bob Shay at Smoking is Dangerous to Your Health. Avoid second hand smoking Bob Shay MD Aug 26, 2017 09:44
== END 2017-08-26 12:00 | DRG 885 ==
LOC: NEPD 00:21 → NEDA 16:00 → H250 16:13 → H4EA 08-25 11:00
PROVIDERS: ADMIT Psychiatry & Neurology Psychiatry; ATTEND Psychiatry & Neurology Psychiatry
DX: F32.2 Major depressive disorder, single episode, severe without psychotic features (principal); L89.152 Pressure ulcer of sacral region, stage 2; E11.22 Type 2 diabetes mellitus with diabetic chronic kidney disease; Z79.84 Long term (current) use of oral hypoglycemic drugs; J44.9 Chronic obstructive pulmonary disease, unspecified; N39.0 Urinary tract infection, site not specified; I12.9 Hypertensive chronic kidney disease with stage 1 through stage 4 chronic kidney disease, or unspecified chronic kidney disease; N18.3 Chronic kidney disease, stage 3 (moderate); I25.10 Atherosclerotic heart disease of native coronary artery without angina pectoris; Z95.1 Presence of aortocoronary bypass graft; Z79.02 Long term (current) use of antithrombotics/antiplatelets; Z86.711 Personal history of pulmonary embolism; Z86.718 Personal history of other venous thrombosis and embolism; N40.0 Benign prostatic hyperplasia without lower urinary tract symptoms; K21.9 Gastro-esophageal reflux disease without esophagitis; E03.9 Hypothyroidism, unspecified; H91.90 Unspecified hearing loss, unspecified ear; R19.7 Diarrhea, unspecified; D50.9 Iron deficiency anemia, unspecified; Z96.653 Presence of artificial knee joint, bilateral; Z96.643 Presence of artificial hip joint, bilateral; Z85.820 Personal history of malignant melanoma of skin; Z87.891 Personal history of nicotine dependence
CPT/HCPCS: 70450; 71045; 74018; 74176; 76937; 80048; 80053; 80061; 80307; 81001; 82607; 82728; 82746; 82948; 83036; 83540; 83550; 83735; 84443; 85025; 87086; 93005; J1815; J3250; Q0163